=== PATIENT | male | born 1970 | race Caucasian/White ===

== ENCOUNTER 2022-12-14 19:40 | Outpatient (BNV) | payer OTHER, SELFPAY | END 2022-12-15 09:42 | PROVIDERS: Admitting Provider Psychiatry & Neurology Psychiatry; Visit Provider Internal Medicine Cardiovascular Disease | DX: R00.1 Bradycardia, unspecified (principal) | CPT/HCPCS: 93010 ==

== ENCOUNTER 2022-12-14 19:40 | Inpatient (IN) | payer OTHER, SELFPAY ==
--- NOTE | ~2022-12-14 | US_ITS ---
EXAMINATION: US NONINVASIVE ASSESSMENT OF THE BILATERAL LOWER EXTREMITY WITH ARTERIAL DUPLEX CLINICAL INFORMATION: Gangrenous toes, cocaine abuse COMPARISON: None available. TECHNIQUE: Duplex Doppler techniques with waveform analysis and measurement of velocities in the common femoral, profunda femoris, superficial femoral, popliteal and tibial arteries were performed. The study was performed only at rest. FINDINGS: NONINVASIVE ASSESSMENT OF THE ARTERIES OF BILATERAL LOWER EXTREMITIES: RIGHT LOWER EXTREMITY DUPLEX ULTRASOUND: Common femoral artery: 145 cm/s. Diastolic flow reversal: Present Profunda femoris artery: 100 cm/s. Diastolic flow reversal: Present Superficial femoral artery (proximal): 149 cm/s. Diastolic flow reversal: Present Superficial femoral artery (mid): 121 cm/s. Diastolic flow reversal: Present Superficial femoral artery (distal): 91.3 cm/s. Diastolic flow reversal: Present Popliteal artery: 104 cm/s Diastolic flow reversal: Present Posterior tibial artery: 126 cm/s Diastolic flow reversal: Present LEFT LOWER EXTREMITY DUPLEX ULTRASOUND: Common femoral artery: 138 cm/s. Diastolic flow reversal: Present Profunda femoris artery: 88.8 cm/s. Diastolic flow reversal: Present Superficial femoral artery (proximal): 117 cm/s. Diastolic flow reversal: Present Superficial femoral artery (mid): 98.8 cm/s. Diastolic flow reversal: Present Superficial femoral artery (distal): 96.7 cm/s. Diastolic flow reversal: Present Popliteal artery: 109 cm/s Diastolic flow reversal: Present Posterior tibial artery: 105 cm/s Diastolic flow reversal: Present US/US arterial duplex LE BI IMPRESSION: Patent visualized bilateral lower extremity arterial vasculature with normal multiphasic flow throughout.
--- NOTE | ~2022-12-14 | XR_ITS ---
EXAMINATION: XR FOOT, RIGHT CLINICAL INFORMATION: Gangrene. COMPARISON: None available. TECHNIQUE: AP, lateral, and oblique views of the right foot. FINDINGS: Cortical irregularity at the tuft of the fifth distal phalanx. Surrounding soft tissue thickening. No displaced fractures or subluxation. Mild joint space narrowing and subcortical sclerosis of the first metatarsophalangeal joint. XR/XR foot RT 2V IMPRESSION: Cortical irregularity at the tuft of the fifth distal phalanx with surrounding soft tissue thickening. This could be associated with osteomyelitis. Correlation with an MRI could be obtained as clinically indicated.
--- NOTE | ~2022-12-14 | XR_ITS ---
EXAMINATION: XR FOOT, LEFT CLINICAL INFORMATION: Gangrene. Toe pain. COMPARISON: None available. TECHNIQUE: AP, lateral, and oblique views of the left foot. FINDINGS: The bones and soft tissues are normal. No fracture. Alignment is anatomic. Joint spaces are maintained. XR/XR foot LT 2V IMPRESSION: Normal left foot.
[2022-12-14 20:00] VITALS: BP 142/70; PULSE 53; RESP 18; TEMP 36.5; O2SAT 98
[2022-12-14] MEDS: traZODone HCL 50 MG TABLET PO (21:32)
[2022-12-14] MEDS: hydrOXYzine HCL 25 MG TABLET PO (21:32)
[2022-12-14 22:24] VITALS: BMI 32.5
--- NOTE | 2022-12-14 22:28 | PC.ADMIT ---
Anthony arrived to the unit at 194, signed CV, [place] [facility] [place] approach appeared sad, he reported endorsing depression and anxiety, denied any AVH. When asked if he had any thoughts of wanting to hurt self stated No, but I don't want to be alive, when asked if he would seek out staff if urge to hurt self occurred stated Yes. Anthony was admitted after presenting to [facility] secondary to an attempted Fentanyl overdose. He reported that he was clean and was waiting on a program and then relapsed, I feel hopeless. Responded well to staff support.
[2022-12-14] MEDS: Prazosin HCL 1 MG CAPSULE PO (23:01)
[2022-12-14] MEDS: Mirtazapine 30 MG TABLET PO (23:01)
[2022-12-14] MEDS: Melatonin 3 MG TABLET 6 MG PO (23:02)
[2022-12-14] MEDS: Buprenorphine/Naloxone 12/3 mg FILM 1 FILM SUBLINGUAL (23:02)
[2022-12-14] MEDS: Gabapentin 400 MG CAPSULE PO (23:02)
--- NOTE | 2022-12-15 | ECG_ITS ---
Test Reason : recent OD Blood Pressure : / mmHG Vent. Rate : 055 BPM Atrial Rate : 055 BPM P-R Int : 178 ms QRS Dur : 080 ms QT Int : 436 ms P-R-T Axes : 063 067 056 degrees QTc Int : 417 ms Sinus bradycardia Otherwise normal ECG When compared with ECG of 11-OCT-2019 15:56, Nonspecific T wave abnormality now evident in Anterior leads Referred By: Yuniel Schultz Electronically Signed By:Dusty Torres
[2022-12-15] MEDS: Gabapentin 400 MG CAPSULE PO ×3 (09:03→21:02)
[2022-12-15] MEDS: valACYclovir HCL 1,000 MG TABLET 1000 MG PO (09:03)
[2022-12-15] MEDS: Buprenorphine/Naloxone 12/3 mg FILM 1 FILM SUBLINGUAL ×2 (09:03→19:49)
[2022-12-15 09:11] VITALS: BP 138/81; PULSE 53; RESP 14; TEMP 36.8; O2SAT 97
[2022-12-15 09:49] LABS: Alanine Aminotransferase 38 U/L (0-40); Albumin Level 3.3 g/dL (3.5-5.0); Alkaline Phosphatase 96 U/L (39-117); Anion Gap 13 (12-20); Aspartate Amino Transferase 38 U/L (5-37); Bilirubin Total 0.2 mg/dL (0.0-1.0); Blood Urea Nitrogen 10 mg/dL (9-16); Calcium 9.2 mg/dL (8.4-10.2); Carbon Dioxide 26 mmol/L (22-29); Chloride 105 mmol/L (96-108); Cholesterol 167 mg/dL; Creatinine Clr Calc Pharmacy 109.4; Estimated Glomerular Filt Rate > 60; Glucose Fasting 95 mg/dL (60-99); HDL Cholesterol 39 mg/dL; LDL Cholesterol Calculated 100 mg/dl; Potassium 3.6 mmol/L (3.3-5.1); Sodium 140 mmol/L (135-145); Total Protein 6.8 g/dL (6.5-8.0); Triglycerides 143 mg/dL
[2022-12-15 10:07] LABS: TSH reflex Free T4 1.72 uIU/mL (0.32-4.0)
[2022-12-15 10:11] LABS: Vitamin B12 357 pg/mL (200-900)
--- NOTE | 2022-12-15 12:27 | P.CONHOSP_ITS ---
History of Present Illness Data of Consult Service Date: 12/15/22 Requesting physician: Yuniel Schultz Primary Care Provider: Unknown Physician HPI Reason for consult: medical H&P 52-year-old male with history of alcohol abuse, cocaine abuse, opioid dependence on Suboxone, history of hepatitis-C treated with Harvoni, herpes simplex 2 virus, depression, and PTSD admitted to Psychiatry consult placed hospitalist service for medical H and P. He reports he is a 1 pack per day smoker and uses IV heroin and cocaine regularly. Denies any alcohol use currently. While in the ED at [facility], EKG showed sinus bradycardia rate 47 with prolonged QTC of 460. No ST/T-wave abnormality. At that time, potassium was 2.9 and was repleted. Today potassium 3.6. There is a normocytic anemia with H/H 11.8/34.7%. TSH was slightly low at 0.31 but free T4 was normal at 1.00. On repeat today, TSH 1.72. He is reporting pain in the bilateral feet, primarily the great toes ongoing for about 1 week. There is a black discoloration that is present. He is homeless and has been outside on the streets during recent significant rain fall. Review of Systems Review of Systems: General: No fevers, malaise, unintentional weight loss HEENT: No blurred vision, diplopia. No sore throat, nasal congestion, rh inorrhea, sinus pain, ear pain Cardiovascular: No chest pain, palpitations, or leg edema Respiratory: No shortness of breath, wheezing, cough GI: No abdominal pain, nausea, vomiting, diarrhea, constipation, melena, hematochezia : No dysuria, hematuria, increased urinary frequency, decreased urinary output MSK: No myalgia, back pain. +bilateral foot pain Neuro: No headaches, weakness, paresthesias Skin: No rashes or lesions PMFSH Medical History Depression History of hepatitis C Opioid dependence Polysubstance abuse PTSD (post-traumatic stress disorder) Social History Household Members: None Household Members Other:: Homeless Housing: Homeless Do you presently have visiting nurse or other home services: No Patient Tobacco Use Status: Current everyday Tobacco user Tobacco use type: Cigarette Cigarette Packs Per Day: 1 Cigarettes Per Day: 20.0 Smoked in Last 30 Days: No Patient Interested in Nicotine Replacement: Yes Patient Given Instructions on How to Stop Smoking: Yes Date Education Initiated: 12/14/22 Use of substances other than those prescribed or required for medical reasons: Yes Substance Use Type: Crack/Cocaine Substance Use Type Other:: Fentanyl Substance Use Frequency: Daily Last Used Substance: Just Prior to Admission Currently Displaying Signs/Symptoms of Drug Intoxication Withdrawal: No Any prior treatment program specific to substance use: Yes (Suboxone) Have you been hit, kicked, punched, or otherwise hurt by someone within the past year? If so, by whom?: No Do you feel safe in your current relationship?: No Current Relationship Is there a partner from a previous relationship who is making you feel unsafe now?: No Are you made to feel afraid or neglected: No Spiritual Healthcare Practices: Christianity Cheondoism Healthcare Practices: Christianity Advance Directives: No Advance Directives Information Provided: Yes Do you have thoughts of harming others: None Do you have a plan to hurt others: No Plan Recently lost weight without trying: Unsure How much weight loss: Unsure Eating poorly because of decreased appetite: No Nutrition screen score: 4 Nutrition Risks: No Nutritional Risk Meds Allergies Allergy/AdvReac Type Severity Reaction Status Date / Time No Known Allergies Allergy Unverified 02/13/20 18:29 Active Medications: Current Medications Acetaminophen (Acetaminophen 325 Mg Tablet) 650 mg PO Q6H PRN PRN Reason: Headache/Pain Mild Scale (1-3) Al Hydroxide/Mg Hydroxide (Magnesium Hydrox/Alum Hydrox 30 Ml Oral.Susp) 30 ml PO Q6H PRN PRN Reason: Heartburn/Nausea Buprenorphine/Naloxone (Buprenorphine/Naloxone 12/3 Mg Film) 1 film SUBLINGUAL BID BORIS Last Admin: 12/15/22 09:03 Dose: 1 film Clonidine HCl (Clonidine Hcl 0.1 Mg Tablet) 0.1 mg PO TID PRN; Protocol PRN Reason: anxiety/restlessness Gabapentin (Gabapentin 400 Mg Capsule) 400 mg PO TID BORIS Last Admin: 12/15/22 09:03 Dose: 400 mg Hydroxyzine HCl (Hydroxyzine Hcl 25 Mg Tablet) 25 mg PO Q6H PRN PRN Reason: Anxiety Last Admin: 12/14/22 21:32 Dose: 25 mg Magnesium Hydroxide (Milk Of Magnesia 30 Ml Oral.Susp) 30 ml PO DAILY PRN PRN Reason: Constipation Melatonin (Melatonin 3 Mg Tablet) 6 mg PO BEDTIME [facility] Last Admin: 12/14/22 23:02 Dose: 6 mg Methocarbamol (Methocarbamol 500 Mg Tablet) 500 mg PO TID PRN PRN Reason: Muscle Spasm Mirtazapine (Mirtazapine 30 Mg Tablet) 30 mg PO BEDTIME BORIS Last Admin: 12/14/22 23:01 Dose: 30 mg Nicotine Polacrilex (Nicotine Polacrilex 2 Mg Gum) 2 mg BUCCAL Q2H PRN PRN Reason: Nicotine Cravings Nicotine Polacrilex (Nicotine Polacrilex Lozenge 4 Mg Lozenge) 4 mg BUCCAL Q2H PRN PRN Reason: Nicotine Cravings Prazosin HCl (Prazosin Hcl 1 Mg Capsule) 1 mg PO BEDTIME BORIS; Protocol Last Admin: 12/14/22 23:01 Dose: 1 mg Trazodone HCl (Trazodone Hcl 50 Mg Tablet) 50 mg PO BEDTIME MRX1 PRN PRN Reason: Insomnia Last Admin: 12/14/22 21:32 Dose: 50 mg Valacyclovir HCl (Valacyclovir Hcl 1,000 Mg Tablet) 1,000 mg PO DAILY [facility] Last Admin: 12/15/22 09:03 Dose: 1,000 mg Physical Exam Vital Signs and Narrative: Vital Signs: Last Vital Signs Temp 98.3 F 12/15/22 09:11 Pulse 53 12/15/22 09:11 Resp 14 12/15/22 09:11 BP 138/81 12/15/22 09:11 Pulse Ox 97 12/15/22 09:11 O2 Del Method Room Air 12/15/22 09:11 BMI result Body Mass Index 32.5 Constitutional - Awake and Alert, No apparent distress Eyes - PERRLA, EOMI Cardiovascular - S1S2, RRR, No edema Respiratory - Normal lung expansion, Normal respiratory effort, No respiratory distress, CTA bilaterally Gastrointestinal - NT / ND; +BS; No rebound or guarding Extremities - no calf tenderness bilaterally, no swelling Skin - Warm/Dry. Black discoloration of the distal aspect of the great toes bilaterally, no foul odor Neurological - Alert & oriented x3, CN II-XII in tact, 5/5 strength BUE and BLE Psychological - Appropriate affect Results Labs 12/15/22 08:23 Labs: Laboratory Results - last 24 hr 12/15/22 12/15/22 08:23 08:23 Anion Gap 13 Estim Creat Clear Calc 109.4 Estimated GFR > 60 Fasting Glucose 95 Calcium 9.2 Total Bilirubin 0.2 AST 38 H ALT 38 Alkaline Phosphatase 96 Total Protein 6.8 Albumin 3.3 L Triglycerides 143 Cholesterol 167 LDL Cholesterol, Calc 100 HDL Cholesterol 39 Vitamin B12 357 Folate 10.0 TSH 1.72 Assessment and Plan (1) Routine medical exam: Status: Acute Plan 52-year-old male with history of alcohol abuse, cocaine abuse, opioid dependence on Suboxone, history of hepatitis-C treated with Harvoni, herpes simplex 2 virus, depression, and PTSD admitted to Psychiatry consult placed hospitalist service for medical H and P. #Mood disorder -plan per psychiatry #Gangrene bilateral great toes -XRay bilateral feet ordered -general surgery consult -pain management #Polysubstance abuse -continue suboxone -plan per Psychiatry Thank you for allowing me to participate in this consult. Signing off at this time. Please do not hesitate to call for further questions. Time Spent With Patient Time: Total time managing care of this patient today ____ minutes.
--- NOTE | 2022-12-15 14:42 | HO.PSYADMNOT ---
HPI Date of Service: 12/15/22 Chief Complaint: F32, F11.20, F14.10, F10.2 Sources of Information: patient interviewed, chart reviewed and crisis/core team assessment reviewed HPI Subjective Notes: Reyes Warning and Conditional Voluntary Healthcare Proxy: No Guardianship: No Medical Problems Affecting Mental Status: No Narrative: 52 yo male, history of depression, PTSD, hepatitis, genital herpes, transfer from [facility] where he was admitted on 12/11/22 s/p overdose of fentanyl. As a result he experienced BEBE, rhabdomyolysis, hyponatremia, hypokalemia, metabolic acidosis with CK 3892 decreasing, BUN 50 decreasing, Cr 3.3 decreasing, mild anemia. Toxicology positive for cannabis, cocaine, opiates. Pt reports relapse, homelessness, financial stress were precipitants to OD which was a suicide attempt. He is regretful his attempt was not a success he reports today. He reports OD of fentanyl last week as well. He reports he is willing to consider CSS when stable along with psychotherapy and psychophamacology. He is continuing with Suboxone. Past Psychiatric History: IP: Several OP: Denies current team Trials: Acknowledges, unable to give specific names. Reports no real success of any specific trial. Medical Evaluation Reviewed: Yes [facility] Medical History (Updated 12/15/22 @ 16:20 by Alayna Parry APRN) Cannabis use disorder Cocaine use disorder Depression History of hepatitis C Opioid dependence Opioid use disorder Polysubstance abuse PTSD (post-traumatic stress disorder) Recurrent major depression-severe Narrative: Genital Herpes Recent BEBE, Rhabdomyolysis, hyponatremia, hypokalemia, metabolic acidosis Family History: Denies Social History: Pt reports he is homeless Substance History: Cannabis, cocaine=IV, opiates-IV, fentanyl Tobacco 1.25 PPD History of alcohol use, currently in remission Trauma History: affirms Diagnostics Vital Signs (24Hr): Vital Signs - 24 hr 12/14/22 20:00 12/15/22 09:11 Temperature 97.7 F 98.3 F Pulse Rate 53 53 Respiratory Rate 18 14 Blood Pressure 142/70 H 138/81 Pulse Oximetry 98 97 Oxygen Delivery Method Room Air Room Air BMI result Body Mass Index 32.5 Labs 12/15/22 08:23 Labs: Laboratory Results - last 48 hr 12/15/22 12/15/22 08:23 08:23 Sodium 140 Potassium 3.6 Chloride 105 Carbon Dioxide 26 Anion Gap 13 BUN 10 Creatinine 0.94 Estim Creat Clear Calc 109.4 Estimated GFR > 60 Fasting Glucose 95 Calcium 9.2 Total Bilirubin 0.2 AST 38 H ALT 38 Alkaline Phosphatase 96 Total Protein 6.8 Albumin 3.3 L Triglycerides 143 Cholesterol 167 LDL Cholesterol, Calc 100 HDL Cholesterol 39 Vitamin B12 357 Folate 10.0 TSH 1.72 Meds/Allergies Allergies Allergies Allergy/AdvReac Type Severity Reaction Status Date / Time No Known Allergies Allergy Unverified 02/13/20 18:29 Mental Status Exam Mental Status Exam Patient Appearance: Fatigued Patient Orientation: Person, Place, Time and Situation Level of Consciousness: Drowsy and Sedated Patient Behavior: Guarded, Passive, Asleep, Sedated, Avoidant, Fatigued, Isolative and Poor Eye Contact Mood Description: Withdrawn, Depressed and Sad Affect Description: Withdrawn and Flat Patient Cognition Impaired: No Ability to Follow Directions: Fair Speech Pattern: Spontaneous Speech, Soft-Spoken, Delayed and Long Pauses Memory Description: Remote Impaired and Episodic Impaired Hallucinations: None Delusions: Not Present Perceptual Disturbances: Depersonalization and Derealization Thought Process: Rumination and Evasive Thought Content: positive for Circumstantial, positive for Slowed Thinking, positive for Evasive and positive for Suicidal Ideation Depressive Symptoms: Sleeping More Than Usual, Feelings of Worthlessness, Hopelessness, Isolating-Friends/Family, Unhappiness, Increased Fatigue, Thoughts of /Suicide and Loss of Energy Judgement: Fair Assessment & Plan Assessment & Plan (1) Recurrent major depression-severe: Status: Acute Code(s): F33.2 - Major depressive disorder, recurrent severe without psychotic features (2) Opioid use disorder: Status: Acute Code(s): F11.90 - Opioid use, unspecified, uncomplicated (3) Cocaine use disorder: Status: Acute Code(s): F14.10 - Cocaine abuse, uncomplicated (4) Cannabis use disorder: Status: Acute Code(s): F12.90 - Cannabis use, unspecified, uncomplicated Plan 52 yo male, history of depression, PTSD, Opiate, Cocaine, Cannabis use s/p OD of Fentanyl, admit to [facility] 12/11 with BEBE,rhabdomyolysis, hyponatremia, hypokalemia metabolic acidosis. [place] [facility] [place] Reports regret that his attempt, acknowledges it as a suicide attempt was not a success. Pt does have interest in CSS admission assistance. Reports regular regime has been useful and he would like to maintain this. Validated with [facility] [place]. Reports pain in both of his great toes with bilateral feet pain and a black/blue discoloration. Pt possibly has gangrenous toes-his hospitalist has asked general surgery to evaluate. Pt today is a limited historian with sedation and withdrawl during the interview. We will need some time to get to know him. Plan: Continue OP regime Iron Profile Addiction Consult Patient educated on: therapeutic strategies Informed Consent: further education needed Reason for continued inpatient stay Substantial Risk for: harm to self, inability to function and rapid decompensation Statement Statement: I have reviewed the history and physical and performed a pertinent examination on my patient. No changes have occurred unless specified. If the History and Physical was not performed prior to admission, the Hospitalist's service will be consulted for completing the admission physical. Time Spent With Patient Time: Total time managing care of this patient today ____ minutes.
[2022-12-15 21:00] VITALS: BP 132/76; PULSE 85; O2SAT 95
[2022-12-15] MEDS: Prazosin HCL 1 MG CAPSULE PO (21:02)
[2022-12-15] MEDS: Mirtazapine 30 MG TABLET PO (21:02)
[2022-12-15] MEDS: Melatonin 3 MG TABLET 6 MG PO (21:02)
[2022-12-16] MEDS: traZODone HCL 50 MG TABLET PO ×2 (00:34→21:26)
[2022-12-16 08:15] VITALS: BP 122/63; PULSE 60; RESP 16; TEMP 36.4; O2SAT 94
[2022-12-16] MEDS: Gabapentin 400 MG CAPSULE PO ×2 (08:19→14:33)
[2022-12-16] MEDS: Nicotine 21 MG PATCH.TD24 TRANSDERMA ×2 (08:19→16:57)
[2022-12-16] MEDS: valACYclovir HCL 1,000 MG TABLET 1000 MG PO (08:19)
[2022-12-16] MEDS: Buprenorphine/Naloxone 12/3 mg FILM 1 FILM SUBLINGUAL ×2 (08:19→14:33)
[2022-12-16 09:28] LABS: Iron 46 mcg/dL (45-160); Percent Iron Saturation 17 % (15-50); Total Iron Binding Capacity 272 mcg/dL (228-428); Unsaturated Iron Binding 226 ug/dL
--- NOTE | 2022-12-16 11:33 | PM.CNGS ---
History of Present Illness Consult details Consult date: 12/16/22 Narrative: 52M referred for discoloration of both big toes. He was admitted yesterday with psych unit for suicidal ideations. He has a history of major depression with polysubstance abuse. He is a regular user of heroin and cocaine. He was recently admitted to [facility] as well because of drug overdose. He was noted to have discoloration of both big toes on admission. He does state that he has had this for over a week. He says that he is homeless and has to walk all the time with his feet rubbing on his sneakers and he says that this is how he says got this discoloration. He denies any bleeding discharge or swelling. Review of Systems Constitutional: Constitutional: Denies chills and Denies fever(s) Cardiovascular: Cardiovascular: Denies chest pain, Denies dyspnea and Denies dyspnea on exertion Respiratory: Respiratory: Denies cough, Denies dyspnea and Denies dyspnea on exertion Gastrointestinal: Gastrointestinal: Denies hematochezia and Denies change in bowel habits Genitourinary: Genitourinary: Denies hematuria and Denies difficulty urinating Musculoskeletal: Musculoskeletal: Denies back pain and Denies limited range of motion Neurologic: Denies focal weakness and Denies convulsions Psychiatric: Psychiatric: Reports depression, Reports mood swings and Reports suicidal ideation PMFSH Past Medical History Medical History (Updated 12/16/22 @ 11:39 by Gigi Swain MD) Cannabis use disorder Cocaine use disorder Depression Discoloration of skin of toe History of hepatitis C Opioid dependence Opioid use disorder Polysubstance abuse PTSD (post-traumatic stress disorder) Recurrent major depression-severe Social History Social History Household Members: None Household Members Other:: Homeless Housing: Homeless Do you presently have visiting nurse or other home services: No Patient Tobacco Use Status: Current everyday Tobacco user Tobacco use type: Cigarette Cigarette Packs Per Day: 1 Cigarettes Per Day: 20.0 Smoked in Last 30 Days: No Patient Interested in Nicotine Replacement: Yes Patient Given Instructions on How to Stop Smoking: Yes Date Education Initiated: 12/14/22 Use of substances other than those prescribed or required for medical reasons: Yes Substance Use Type: Crack/Cocaine Substance Use Type Other:: Fentanyl Substance Use Frequency: Daily Last Used Substance: Just Prior to Admission Currently Displaying Signs/Symptoms of Drug Intoxication Withdrawal: No Any prior treatment program specific to substance use: Yes (Suboxone) Have you been hit, kicked, punched, or otherwise hurt by someone within the past year? If so, by whom?: No Do you feel safe in your current relationship?: No Current Relationship Is there a partner from a previous relationship who is making you feel unsafe now?: No Are you made to feel afraid or neglected: No Spiritual Healthcare Practices: [employer] Healthcare Practices: [employer] Advance Directives: No Advance Directives Information Provided: Yes Do you have thoughts of harming others: None Do you have a plan to hurt others: No Plan Recently lost weight without trying: Unsure How much weight loss: Unsure Eating poorly because of decreased appetite: No Nutrition screen score: 4 Nutrition Risks: No Nutritional Risk service: No Sexual orientation: Straight/Heterosexual Meds Allergies Allergy/AdvReac Type Severity Reaction Status Date / Time No Known Allergies Allergy Unverified 02/13/20 18:29 Active Medications: Current Medications Acetaminophen (Acetaminophen 325 Mg Tablet) 650 mg PO Q6H PRN PRN Reason: Headache/Pain Mild Scale (1-3) Al Hydroxide/Mg Hydroxide (Magnesium Hydrox/Alum Hydrox 30 Ml Oral.Susp) 30 ml PO Q6H PRN PRN Reason: Heartburn/Nausea Buprenorphine/Naloxone (Buprenorphine/Naloxone 12/3 Mg Film) 1 film SUBLINGUAL BID@0800,1500 COUNT INCLUDES THE [facility] Last Admin: 12/16/22 08:19 Dose: 1 film Clonidine HCl (Clonidine Hcl 0.1 Mg Tablet) 0.1 mg PO TID PRN; Protocol PRN Reason: anxiety/restlessness Gabapentin (Gabapentin 400 Mg Capsule) 400 mg PO TID COUNT INCLUDES THE [facility] Last Admin: 12/16/22 08:19 Dose: 400 mg Hydroxyzine HCl (Hydroxyzine Hcl 25 Mg Tablet) 25 mg PO Q6H PRN PRN Reason: Anxiety Last Admin: 12/14/22 21:32 Dose: 25 mg Magnesium Hydroxide (Milk Of Magnesia 30 Ml Oral.Susp) 30 ml PO DAILY PRN PRN Reason: Constipation Melatonin (Melatonin 3 Mg Tablet) 6 mg PO BEDTIME COUNT INCLUDES [facility] Last Admin: 12/15/22 21:02 Dose: 6 mg Methocarbamol (Methocarbamol 500 Mg Tablet) 500 mg PO TID PRN PRN Reason: Muscle Spasm Mirtazapine (Mirtazapine 30 Mg Tablet) 30 mg PO BEDTIME [facility] Last Admin: 12/15/22 21:02 Dose: 30 mg Nicotine (Nicotine 21 Mg Patch.Td24) 21 mg TRANSDERMA DAILY COUNT INCLUDES [facility] Last Admin: 12/16/22 08:19 Dose: 21 mg Nicotine Polacrilex (Nicotine Polacrilex Lozenge 4 Mg Lozenge) 4 mg BUCCAL Q2H PRN PRN Reason: Nicotine Cravings Prazosin HCl (Prazosin Hcl 1 Mg Capsule) 1 mg PO BEDTIME [facility]; Protocol Last Admin: 12/15/22 21:02 Dose: 1 mg Trazodone HCl (Trazodone Hcl 50 Mg Tablet) 50 mg PO BEDTIME MRX1 PRN PRN Reason: Insomnia Last Admin: 12/16/22 00:34 Dose: 50 mg Valacyclovir HCl (Valacyclovir Hcl 1,000 Mg Tablet) 1,000 mg PO DAILY COUNT INCLUDES THE [facility] Last Admin: 12/16/22 08:19 Dose: 1,000 mg Physical Exam Vital Signs: Vital Signs: Last Vital Signs Temp 97.5 F 12/16/22 08:15 Pulse 60 12/16/22 08:15 Resp 16 12/16/22 08:15 BP 122/63 12/16/22 08:15 Pulse Ox 94 12/16/22 08:15 O2 Del Method Room Air 12/16/22 08:15 BMI result Body Mass Index 32.5 Const: General: comfortable and no acute distress Orientation/consciousness: patient oriented x3 Neck: Neck: Yes no lymphadenopathy Resp: Auscultation: clear to auscultation bilaterally Cardio: Rhythm: regular rhythm GI: Palpation (GI): Soft to palpation, nontender and no guarding Neuro: General: patient oriented x3 Extrem: Other: Right big toe with discoloration on medial aspect, well-defined, superficial, about 2 cm widest diameter, dry, no pus, no cellulitis, no discharge; left big toe with similar but light coloration, no pus cellulitis or discharge, also about 2 cm in diameter Results Labs 12/15/22 08:23 Labs: Abnormal lab results 12/16/22 Range/Units 08:13 Phosphorus 2.0 L (2.7-4.5) mg/dL All other labs normal. Assessment and Plan (1) Discoloration of skin of toe: Status: Acute These appear to be superficial dry necrosis of the skin of the big toes on both the left and right side. These are likely secondary to pressure and rubbing ambulation with his shoes. These do not appear to be infected. I would allow this to slough off. I do not feel he requires any debridement or I&D at this time. However, I will check him in again while he is in the hospital and re-examine the area. I do not feel that he will require antibiotics at this time. Time Spent With Patient Time: Total time managing care of this patient today ____ minutes. Procedures Date of Service Date of Service: 12/21/22
[2022-12-16 13:43] LABS: C Reactive Protein 0.64 mg/dL (< or = 0.50)
[2022-12-16 14:33] LABS: Erythrocyte Sedimentation Rate 20 MM/HR (0-15)
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
[2022-12-16] MEDS: hydrOXYzine HCL 25 MG TABLET PO (19:02)
[2022-12-16 21:23] VITALS: BP 138/69; PULSE 75; RESP 18; TEMP 36.1; O2SAT 97
[2022-12-16] MEDS: Prazosin HCL 1 MG CAPSULE PO (21:25)
[2022-12-16] MEDS: Melatonin 3 MG TABLET 6 MG PO (21:26)
[2022-12-16] MEDS: Gabapentin 300 MG CAPSULE 600 MG PO (21:26)
[2022-12-16] MEDS: Mirtazapine 30 MG TABLET PO (21:26)
[2022-12-17 08:00] VITALS: BP 133/83; PULSE 81; RESP 18; TEMP 36.2; O2SAT 95
[2022-12-17] MEDS: Buprenorphine/Naloxone 12/3 mg FILM 1 FILM SUBLINGUAL ×2 (08:37→14:33)
[2022-12-17] MEDS: Nicotine 21 MG PATCH.TD24 TRANSDERMA (08:54)
[2022-12-17] MEDS: Gabapentin 300 MG CAPSULE 600 MG PO ×3 (08:55→21:21)
[2022-12-17] MEDS: valACYclovir HCL 1,000 MG TABLET 1000 MG PO (08:55)
[2022-12-17] MEDS: Mineral Oil/Petrolatum,White 106 GM Tube 1 APPL TOPICAL ×2 (08:56→22:15)
[2022-12-17 08:58] LABS: Phosphorus 2.7 mg/dL (2.7-4.5)
[2022-12-17] MEDS: Acetaminophen 325 MG TABLET 650 MG PO ×2 (13:16→21:20)
[2022-12-17] MEDS: hydrOXYzine HCL 25 MG TABLET PO ×2 (13:16→21:20)
--- NOTE | 2022-12-17 14:48 | P.PNPSI_ITS ---
Subjective Subjective Date of Service: 12/17/22 Reason For Visit: F32, F11.20, F14.10, F10.2 Interim History: Patient seen. DW team. Depressed. Difficulty with sleep. Feels med regimen is n ot helping sleep. Working with team on CSS placement.Surgery consultation didn't recommend surgery or antibiotics. Feeling stress about not having clothing to go to a program. Denies SI. Review of Systems Review of Systems General: No fevers, malaise, unintentional weight loss HEENT: No blurred vision, diplopia. No sore throat, nasal congestion, rhinorrhea, sinus pain, ear pain Cardiovascular: No chest pain, palpitations, or leg edema Respiratory: No shortness of breath, wheezing, cough GI: No abdominal pain, nausea, vomiting, diarrhea, constipation, melena, hematochezia : No dysuria, hematuria, increased urinary frequency, decreased urinary output MSK: No myalgia, back pain. +bilateral foot pain Neuro: No headaches, weakness, paresthesias Skin: No rashes or lesions Constitutional: Reports body ache(s), Denies chills, Reports fatigue, Denies fever(s), Reports malaise, Reports poor appetite and Reports weakness Eyes: Reports no additional eye complaints Reports system reviewed and no additional complaints, except as documented Cardiovascular: Reports no additional cardiovascular complaints, Denies chest pain, Denies dyspnea, Denies dyspnea on exertion and Reports other (reports feet pain-circulation poor, ?gangrene, ?cocaine toes) Respiratory: Reports no additional respiratory complaints, Denies cough, Denies dyspnea and Denies dyspnea on exertion Gastrointestinal: Reports no additional gastrointestinal complaints, Denies hematochezia and Denies change in bowel habits Genitourinary: Reports no additional male genitourinary complaints, Denies hematuria and Denies difficulty urinating Musculoskeletal: Reports no additional musculoskeletal complaints, Denies back pain and Denies limited range of motion Skin/Breast: Reports system reviewed and no additional complaints, except as docu Reports system reviewed and no additional complaints, except as documented, Reports behavioral changes, Denies focal weakness, Denies convulsions and Reports weakness Psychiatric: Reports anxiety, Reports behavioral changes, Reports change in appetite, Reports depression, Reports difficulty concentrating, Reports hopelessness, Reports anhedonia, Reports mood swings and Reports suicidal ideation Endocrine: Reports fatigue Hematologic/Lymphatic: Reports no additional hematologic/lymphatic complaints Allergic/Immunologic: Reports no additional allergic/immunologic complaints Mental Status Exam Mental Status Exam Patient Appearance: Fatigued Patient Orientation: Person, Place, Time and Situation Level of Consciousness: Drowsy and Sedated Patient Behavior: Guarded, Passive, Asleep, Sedated, Avoidant, Fatigued, Isolative and Poor Eye Contact Mood Description: Withdrawn, Depressed and Sad Affect Description: Withdrawn and Flat Patient Cognition Impaired: No Ability to Follow Directions: Fair Speech Pattern: Spontaneous Speech, Soft-Spoken, Delayed and Long Pauses Memory Description: Remote Impaired and Episodic Impaired Diagnostics Vital Signs (24Hr): Vital Signs - 24 hr 12/16/22 21:23 12/17/22 06:00 Temperature 97 F 97.1 F Pulse Rate 75 81 Respiratory Rate 18 18 Blood Pressure 138/69 133/83 Pulse Oximetry 97 95 Oxygen Delivery Method Room Air BMI result Body Mass Index 32.5 Labs 12/15/22 08:23 Labs: Laboratory Results - last 48 hr 12/16/22 12/16/22 12/16/22 08:13 13:08 13:08 ESR 20 H Phosphorus 2.0 L Iron 46 TIBC 272 % Saturation 17 Unsat Iron Binding 226 C-Reactive Protein 0.64 H 12/17/22 07:52 ESR Phosphorus 2.7 Iron TIBC % Saturation Unsat Iron Binding C-Reactive Protein Imaging Radiology Impressions: ITS Impressions Foot X-Ray 12/15/22 18:30 IMPRESSION: Normal left foot. Foot X-Ray 12/15/22 18:30 IMPRESSION: Cortical irregularity at the tuft of the fifth distal phalanx with surrounding soft tissue thickening. This could be associated with osteomyelitis. Correlation with an MRI could be obtained as clinically indicated. Duplex Scan Lower Extremity Artery 12/15/22 18:50 IMPRESSION: Patent visualized bilateral lower extremity arterial vasculature with normal multiphasic flow throughout. Medications Medications Current Medications Acetaminophen (Acetaminophen 325 Mg Tablet) 650 mg PO Q6H PRN PRN Reason: Headache/Pain Mild Scale (1-3) Last Admin: 12/17/22 13:16 Dose: 650 mg Al Hydroxide/Mg Hydroxide (Magnesium Hydrox/Alum Hydrox 30 Ml Oral.Susp) 30 ml PO Q6H PRN PRN Reason: Heartburn/Nausea Buprenorphine/Naloxone (Buprenorphine/Naloxone 12/3 Mg Film) 1 film SUBLINGUAL BID@0800,1500 [facility] Last Admin: 12/17/22 14:33 Dose: 1 film Clonidine HCl (Clonidine Hcl 0.1 Mg Tablet) 0.1 mg PO TID PRN; Protocol PRN Reason: anxiety/restlessness Gabapentin (Gabapentin 300 Mg Capsule) 600 mg PO TID [facility] Last Admin: 12/17/22 14:32 Dose: 600 mg Hydroxyzine HCl (Hydroxyzine Hcl 25 Mg Tablet) 25 mg PO Q6H PRN PRN Reason: Anxiety Last Admin: 12/17/22 13:16 Dose: 25 mg Magnesium Hydroxide (Milk Of Magnesia 30 Ml Oral.Susp) 30 ml PO DAILY PRN PRN Reason: Constipation Melatonin (Melatonin 3 Mg Tablet) 6 mg PO BEDTIME [facility] Last Admin: 12/16/22 21:26 Dose: 6 mg Methocarbamol (Methocarbamol 500 Mg Tablet) 500 mg PO TID PRN PRN Reason: Muscle Spasm Mirtazapine (Mirtazapine 30 Mg Tablet) 30 mg PO BEDTIME [facility] Last Admin: 12/16/22 21:26 Dose: 30 mg Multi-Ingred Cream/Lotion/Oil/Oint (Mineral Oil/Petrolatum,White 106 Gm Tube) 1 appl TOPICAL BID [facility]; Protocol Last Admin: 12/17/22 08:56 Dose: 1 appl Nicotine (Nicotine 21 Mg Patch.Td24) 21 mg TRANSDERMA DAILY [facility] Last Admin: 12/17/22 08:54 Dose: 21 mg Nicotine Polacrilex (Nicotine Polacrilex Lozenge 4 Mg Lozenge) 4 mg BUCCAL Q2H PRN PRN Reason: Nicotine Cravings Prazosin HCl (Prazosin Hcl 1 Mg Capsule) 2 mg PO BEDTIME [facility]; Protocol Trazodone HCl (Trazodone Hcl 50 Mg Tablet) 50 mg PO BEDTIME MRX1 PRN PRN Reason: Insomnia Last Admin: 12/16/22 21:26 Dose: 50 mg Valacyclovir HCl (Valacyclovir Hcl 1,000 Mg Tablet) 1,000 mg PO DAILY [facility] Last Admin: 12/17/22 08:55 Dose: 1,000 mg Allergies Allergies Allergy/AdvReac Type Severity Reaction Status Date / Time No Known Allergies Allergy Unverified 02/13/20 18:29 Assessment & Plan Assessment & Plan (1) PTSD (post-traumatic stress disorder): Status: Acute Code(s): F43.10 - Post-traumatic stress disorder, unspecified (2) Recurrent major depression-severe: Status: Acute Code(s): F33.2 - Major depressive disorder, recurrent severe without psychotic features (3) Opioid use disorder: Status: Acute Code(s): F11.90 - Opioid use, unspecified, uncomplicated (4) Cocaine use disorder: Status: Acute Code(s): F14.10 - Cocaine abuse, uncomplicated (5) Cannabis use disorder: Status: Acute Code(s): F12.90 - Cannabis use, unspecified, uncomplicated Plan 12/16/22 Continue current regime Eucerin cream for dry skin CSS planning for discharge 12/17: Increase Prazosin 2 mg HS. Consider further titration or Seroquel next. Reason for continued inpatient stay Substantial Risk for: harm to self, inability to function and rapid decompensation Time Spent With Patient Time: Total time managing care of this patient today ____ minutes.
[2022-12-17 16:06] VITALS: BP 146/70; PULSE 77; RESP 18; TEMP 36.2; O2SAT 94
[2022-12-17] MEDS: Mirtazapine 30 MG TABLET PO (21:21)
[2022-12-17] MEDS: Prazosin HCL 1 MG CAPSULE 2 MG PO (21:21)
[2022-12-17] MEDS: Melatonin 3 MG TABLET 6 MG PO (21:21)
[2022-12-17 21:25] VITALS: BP 165/93; PULSE 79; RESP 17; TEMP 36.4; O2SAT 97
[2022-12-18 06:00] VITALS: BP 138/70; PULSE 86; RESP 18; TEMP 36.2; O2SAT 97
[2022-12-18 08:21] LABS: Phosphorus 3.7 mg/dL (2.7-4.5)
[2022-12-18] MEDS: Buprenorphine/Naloxone 12/3 mg FILM 1 FILM SUBLINGUAL ×2 (08:22→14:38)
[2022-12-18] MEDS: Gabapentin 300 MG CAPSULE 600 MG PO ×3 (08:23→21:57)
[2022-12-18] MEDS: valACYclovir HCL 1,000 MG TABLET 1000 MG PO (08:23)
[2022-12-18] MEDS: Nicotine 21 MG PATCH.TD24 TRANSDERMA (08:25)
[2022-12-18] MEDS: Mineral Oil/Petrolatum,White 106 GM Tube 1 APPL TOPICAL (08:27)
--- NOTE | 2022-12-18 10:56 | P.PNPSI_ITS ---
Subjective Subjective Date of Service: 12/18/22 Reason For Visit: F32, F11.20, F14.10, F10.2 Interim History: Patient seen. DW team. Depressed. Complaining of mouth sores that have been wor sening over past week. 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 Denies SI on the unit but voices he would have SI with plans for OD f he is in the community. Sleep is difficult still. Review of Systems Review of Systems General: No fevers, malaise, unintentional weight loss HEENT: No blurred vision, diplopia. No sore throat, nasal congestion, rhinorrhea, sinus pain, ear pain Cardiovascular: No chest pain, palpitations, or leg edema Respiratory: No shortness of breath, wheezing, cough GI: No abdominal pain, nausea, vomiting, diarrhea, constipation, melena, hematochezia : No dysuria, hematuria, increased urinary frequency, decreased urinary output MSK: No myalgia, back pain. +bilateral foot pain Neuro: No headaches, weakness, paresthesias Skin: No rashes or lesions Constitutional: Reports body ache(s), Denies chills, Reports fatigue, Denies fever(s), Reports malaise, Reports poor appetite and Reports weakness Eyes: Reports no additional eye complaints Reports system reviewed and no additional complaints, except as documented Cardiovascular: Reports no additional cardiovascular complaints, Denies chest pain, Denies dyspnea, Denies dyspnea on exertion and Reports other (reports feet pain-circulation poor, ?gangrene, ?cocaine toes) Respiratory: Reports no additional respiratory complaints, Denies cough, Denies dyspnea and Denies dyspnea on exertion Gastrointestinal: Reports no additional gastrointestinal complaints, Denies hematochezia and Denies change in bowel habits Genitourinary: Reports no additional male genitourinary complaints, Denies hematuria and Denies difficulty urinating Musculoskeletal: Reports no additional musculoskeletal complaints, Denies back pain and Denies limited range of motion Skin/Breast: Reports system reviewed and no additional complaints, except as docu Reports system reviewed and no additional complaints, except as documented, Reports behavioral changes, Denies focal weakness, Denies convulsions and Reports weakness Psychiatric: Reports anxiety, Reports behavioral changes, Reports change in appetite, Reports depression, Reports difficulty concentrating, Reports hopelessness, Reports anhedonia, Reports mood swings and Reports suicidal ideation Endocrine: Reports fatigue Hematologic/Lymphatic: Reports no additional hematologic/lymphatic complaints Allergic/Immunologic: Reports no additional allergic/immunologic complaints Mental Status Exam Mental Status Exam Patient Appearance: Fatigued Patient Orientation: Person, Place, Time and Situation Level of Consciousness: Drowsy and Sedated Patient Behavior: Guarded, Passive, Asleep, Sedated, Avoidant, Fatigued, Isolative and Poor Eye Contact Mood Description: Withdrawn, Depressed and Sad Affect Description: Withdrawn and Flat Patient Cognition Impaired: No Ability to Follow Directions: Fair Speech Pattern: Spontaneous Speech, Soft-Spoken, Delayed and Long Pauses Memory Description: Remote Impaired and Episodic Impaired Diagnostics Vital Signs (24Hr): Vital Signs - 24 hr 12/17/22 16:06 12/17/22 21:25 12/18/22 06:00 Temperature 97.1 F 97.6 F 97.2 F Pulse Rate 77 79 86 Respiratory Rate 18 17 18 Blood Pressure 146/70 H 165/93 H 138/70 Pulse Oximetry 94 97 97 Oxygen Delivery Method Room Air Room Air BMI result Body Mass Index 32.5 Labs 12/15/22 08:23 Labs: Laboratory Results - last 48 hr 12/16/22 12/16/22 12/17/22 13:08 13:08 07:52 ESR 20 H Phosphorus 2.7 C-Reactive Protein 0.64 H 12/18/22 07:21 ESR Phosphorus 3.7 C-Reactive Protein Imaging Radiology Impressions: ITS Impressions Foot X-Ray 12/15/22 18:30 IMPRESSION: Normal left foot. Foot X-Ray 12/15/22 18:30 IMPRESSION: Cortical irregularity at the tuft of the fifth distal phalanx with surrounding soft tissue thickening. This could be associated with osteomyelitis. Correlation with an MRI could be obtained as clinically indicated. Duplex Scan Lower Extremity Artery 12/15/22 18:50 IMPRESSION: Patent visualized bilateral lower extremity arterial vasculature with normal multiphasic flow throughout. Medications Medications Current Medications Acetaminophen (Acetaminophen 325 Mg Tablet) 650 mg PO Q6H PRN PRN Reason: Headache/Pain Mild Scale (1-3) Last Admin: 12/17/22 21:20 Dose: 650 mg Al Hydroxide/Mg Hydroxide (Magnesium Hydrox/Alum Hydrox 30 Ml Oral.Susp) 30 ml PO Q6H PRN PRN Reason: Heartburn/Nausea Buprenorphine/Naloxone (Buprenorphine/Naloxone 12/3 Mg Film) 1 film SUBLINGUAL BID@0800,1500 [facility] Last Admin: 12/18/22 08:22 Dose: 1 film Clonidine HCl (Clonidine Hcl 0.1 Mg Tablet) 0.1 mg PO TID PRN; Protocol PRN Reason: anxiety/restlessness Gabapentin (Gabapentin 300 Mg Capsule) 600 mg PO TID [facility] Last Admin: 12/18/22 08:23 Dose: 600 mg Hydroxyzine HCl (Hydroxyzine Hcl 25 Mg Tablet) 25 mg PO Q6H PRN PRN Reason: Anxiety Last Admin: 12/17/22 21:20 Dose: 25 mg Magnesium Hydroxide (Milk Of Magnesia 30 Ml Oral.Susp) 30 ml PO DAILY PRN PRN Reason: Constipation Melatonin (Melatonin 3 Mg Tablet) 6 mg PO BEDTIME [facility] Last Admin: 12/17/22 21:21 Dose: 6 mg Methocarbamol (Methocarbamol 500 Mg Tablet) 500 mg PO TID PRN PRN Reason: Muscle Spasm Mirtazapine (Mirtazapine 30 Mg Tablet) 30 mg PO BEDTIME [facility] Last Admin: 12/17/22 21:21 Dose: 30 mg Multi-Ingred Cream/Lotion/Oil/Oint (Mineral Oil/Petrolatum,White 106 Gm Tube) 1 appl TOPICAL BID [facility]; Protocol Last Admin: 12/18/22 08:27 Dose: 1 appl Nicotine (Nicotine 21 Mg Patch.Td24) 21 mg TRANSDERMA DAILY [facility] Last Admin: 12/18/22 08:25 Dose: 21 mg Nicotine Polacrilex (Nicotine Polacrilex Lozenge 4 Mg Lozenge) 4 mg BUCCAL Q2H PRN PRN Reason: Nicotine Cravings Prazosin HCl (Prazosin Hcl 1 Mg Capsule) 2 mg PO BEDTIME [facility]; Protocol Last Admin: 12/17/22 21:21 Dose: 2 mg Trazodone HCl (Trazodone Hcl 50 Mg Tablet) 50 mg PO BEDTIME MRX1 PRN PRN Reason: Insomnia Last Admin: 12/16/22 21:26 Dose: 50 mg Valacyclovir HCl (Valacyclovir Hcl 1,000 Mg Tablet) 1,000 mg PO DAILY [facility] Last Admin: 12/18/22 08:23 Dose: 1,000 mg Allergies Allergies Allergy/AdvReac Type Severity Reaction Status Date / Time No Known Allergies Allergy Unverified 02/13/20 18:29 Assessment & Plan Assessment & Plan (1) PTSD (post-traumatic stress disorder): Status: Acute Code(s): F43.10 - Post-traumatic stress disorder, unspecified (2) Recurrent major depression-severe: Status: Acute Code(s): F33.2 - Major depressive disorder, recurrent severe without psychotic features (3) Opioid use disorder: Status: Acute Code(s): F11.90 - Opioid use, unspecified, uncomplicated (4) Cocaine use disorder: Status: Acute Code(s): F14.10 - Cocaine abuse, uncomplicated (5) Cannabis use disorder: Status: Acute Code(s): F12.90 - Cannabis use, unspecified, uncomplicated Plan 12/16/22 Continue current regime Eucerin cream for dry skin CSS planning for discharge 12/17: Increase Prazosin 2 mg HS. Consider further titration or Seroquel next. 12/18: Magic mouthwash. Increase Prazosin to 5 mg HS Reason for continued inpatient stay Substantial Risk for: harm to self and rapid decompensation Time Spent With Patient Time: Total time managing care of this patient today ____ minutes.
[2022-12-18] MEDS: Mag&Al/Sim/Diphenhyd/Lidocaine 10 ML ORAL.SUSP PO ×2 (13:55→19:02)
[2022-12-18] MEDS: hydrOXYzine HCL 25 MG TABLET PO (14:38)
[2022-12-18] MEDS: Acetaminophen 325 MG TABLET 650 MG PO (14:38)
[2022-12-18 17:40] VITALS: BP 129/65; PULSE 81; RESP 18; TEMP 36.3; O2SAT 96
[2022-12-18] MEDS: Nicotine Polacrilex Lozenge 4 MG LOZENGE BUCCAL (19:07)
[2022-12-18] MEDS: Milk of Magnesia 30 ML ORAL.SUSP PO (19:07)
[2022-12-18] MEDS: Mirtazapine 30 MG TABLET PO (21:57)
[2022-12-18] MEDS: Melatonin 3 MG TABLET 6 MG PO (21:57)
[2022-12-18] MEDS: Prazosin HCL 1 MG CAPSULE 2 MG PO (21:58)
[2022-12-18] MEDS: traZODone HCL 50 MG TABLET PO (21:58)
[2022-12-19 06:00] VITALS: BP 157/70; PULSE 63; RESP 16; TEMP 36.8; O2SAT 98
[2022-12-19] MEDS: Gabapentin 300 MG CAPSULE 600 MG PO ×3 (08:19→20:41)
[2022-12-19] MEDS: Nicotine 21 MG PATCH.TD24 TRANSDERMA (08:19)
[2022-12-19] MEDS: Buprenorphine/Naloxone 12/3 mg FILM 1 FILM SUBLINGUAL ×2 (08:19→14:23)
[2022-12-19] MEDS: valACYclovir HCL 1,000 MG TABLET 1000 MG PO (08:21)
[2022-12-19 09:22] LABS: Phosphorus 2.8 mg/dL (2.7-4.5)
[2022-12-19] MEDS: Mineral Oil/Petrolatum,White 106 GM Tube 1 APPL TOPICAL (09:31)
--- NOTE | 2022-12-19 14:26 | HO.PSYCHPN ---
Subjective Subjective Date of Service: 12/19/22 Reason For Visit: F32, F11.20, F14.10, F10.2 Subjective Notes: Conditional Voluntary Healthcare Proxy: No Guardianship: No Medical Problems Affecting Mental Status: No Interim History: Reviewed with team. Visable in milieu. Attending group. Continues with an isolative stance. Team reports he continues to focus on clothing needed from the donation source, however unit policy has been reviewed with him. Several [employer] applications have been sent in by team. Pt has been asked to connect with [place]. Medication Compliance: Yes Side effects from medications: No Attending Groups: Yes Review of Systems Acute medical concerns: No Medical Review of Systems: unchanged Mental Status Exam Mental Status Exam Patient Appearance: Appropriate Patient Orientation: Person, Place, Time and Situation Level of Consciousness: Alert Patient Behavior: Guarded, Distractible and Good Eye Contact Mood Description: Constricted and Hostile Affect Description: Constricted Patient Cognition Impaired: No Ability to Follow Directions: Good Speech Pattern: Spontaneous Speech Memory Description: Episodic Impaired Hallucinations: None Delusions: Not Present Perceptual Disturbances: Depersonalization and Derealization Thought Process: Rumination Thought Content: positive for Perseveration Judgement: Fair Diagnostics Vital Signs (24Hr): Vital Signs - 24 hr 12/18/22 17:40 12/19/22 06:00 Temperature 97.3 F 98.2 F Pulse Rate 81 63 Respiratory Rate 18 16 Blood Pressure 129/65 157/70 H Pulse Oximetry 96 98 Oxygen Delivery Method Room Air Room Air BMI result Body Mass Index 32.5 Labs 12/15/22 08:23 Labs: Laboratory Results - last 48 hr 12/18/22 12/19/22 07:21 08:12 Phosphorus 3.7 2.8 Imaging Radiology Impressions: ITS Impressions Foot X-Ray 12/15/22 18:30 IMPRESSION: Normal left foot. Foot X-Ray 12/15/22 18:30 IMPRESSION: Cortical irregularity at the tuft of the fifth distal phalanx with surrounding soft tissue thickening. This could be associated with osteomyelitis. Correlation with an MRI could be obtained as clinically indicated. Duplex Scan Lower Extremity Artery 12/15/22 18:50 IMPRESSION: Patent visualized bilateral lower extremity arterial vasculature with normal multiphasic flow throughout. Medications Medications Current Medications Acetaminophen (Acetaminophen 325 Mg Tablet) 650 mg PO Q6H PRN PRN Reason: Headache/Pain Mild Scale (1-3) Last Admin: 12/18/22 14:38 Dose: 650 mg Al Hydroxide/Mg Hydroxide (Magnesium Hydrox/Alum Hydrox 30 Ml Oral.Susp) 30 ml PO Q6H PRN PRN Reason: Heartburn/Nausea Buprenorphine/Naloxone (Buprenorphine/Naloxone 12/3 Mg Film) 1 film SUBLINGUAL BID@0800,1500 [facility] Last Admin: 12/19/22 08:19 Dose: 1 film Clonidine HCl (Clonidine Hcl 0.1 Mg Tablet) 0.1 mg PO TID PRN; Protocol PRN Reason: anxiety/restlessness Gabapentin (Gabapentin 300 Mg Capsule) 600 mg PO TID [facility] Last Admin: 12/19/22 08:19 Dose: 600 mg Hydroxyzine HCl (Hydroxyzine Hcl 25 Mg Tablet) 25 mg PO Q6H PRN PRN Reason: Anxiety Last Admin: 12/18/22 14:38 Dose: 25 mg Lidocaine/Diphenhydr/Alum/Mg/Simeth (Mag&Al/Sim/Diphenhyd/Lidocaine 10 Ml Oral.Susp) 10 ml PO Q4H PRN; Protocol PRN Reason: mouth pain Last Admin: 12/18/22 19:02 Dose: 10 ml Magnesium Hydroxide (Milk Of Magnesia 30 Ml Oral.Susp) 30 ml PO DAILY PRN PRN Reason: Constipation Last Admin: 12/18/22 19:07 Dose: 30 ml Melatonin (Melatonin 3 Mg Tablet) 6 mg PO BEDTIME [facility] Last Admin: 12/18/22 21:57 Dose: 6 mg Methocarbamol (Methocarbamol 500 Mg Tablet) 500 mg PO TID PRN PRN Reason: Muscle Spasm Mirtazapine (Mirtazapine 30 Mg Tablet) 30 mg PO BEDTIME [facility] Last Admin: 12/18/22 21:57 Dose: 30 mg Multi-Ingred Cream/Lotion/Oil/Oint (Mineral Oil/Petrolatum,White 106 Gm Tube) 1 appl TOPICAL BID [facility]; Protocol Last Admin: 12/19/22 09:31 Dose: 1 appl Nicotine (Nicotine 21 Mg Patch.Td24) 21 mg TRANSDERMA DAILY [facility] Last Admin: 12/19/22 08:19 Dose: 21 mg Nicotine Polacrilex (Nicotine Polacrilex Lozenge 4 Mg Lozenge) 4 mg BUCCAL Q2H PRN PRN Reason: Nicotine Cravings Last Admin: 12/18/22 19:07 Dose: 4 mg Prazosin HCl (Prazosin Hcl 1 Mg Capsule) 2 mg PO BEDTIME [facility]; Protocol Last Admin: 12/18/22 21:58 Dose: 2 mg Trazodone HCl (Trazodone Hcl 50 Mg Tablet) 50 mg PO BEDTIME MRX1 PRN PRN Reason: Insomnia Last Admin: 12/18/22 21:58 Dose: 50 mg Valacyclovir HCl (Valacyclovir Hcl 1,000 Mg Tablet) 1,000 mg PO DAILY [facility] Last Admin: 12/19/22 08:21 Dose: 1,000 mg Allergies Allergies Allergy/AdvReac Type Severity Reaction Status Date / Time No Known Allergies Allergy Unverified 02/13/20 18:29 Assessment & Plan Assessment & Plan (1) PTSD (post-traumatic stress disorder): Status: Acute Code(s): F43.10 - Post-traumatic stress disorder, unspecified (2) Recurrent major depression-severe: Status: Acute Code(s): F33.2 - Major depressive disorder, recurrent severe without psychotic features (3) Opioid use disorder: Status: Acute Code(s): F11.90 - Opioid use, unspecified, uncomplicated (4) Cocaine use disorder: Status: Acute Code(s): F14.10 - Cocaine abuse, uncomplicated (5) Cannabis use disorder: Status: Acute Code(s): F12.90 - Cannabis use, unspecified, uncomplicated Plan 12/16/22 Continue current regime Eucerin cream for dry skin CSS planning for discharge 12/17: Increase Prazosin 2 mg HS. Consider further titration or Seroquel next. 12/18: Magic mouthwash. Increase Prazosin to 5 mg HS 12/19/22: Continue current regime and plan of care. Informed Consent: understands Reason for continued inpatient stay Substantial Risk for: rapid decompensation Time Spent With Patient Time: Total time managing care of this patient today ____ minutes.
[2022-12-19 18:00] VITALS: BP 129/60; PULSE 73; TEMP 36.2; O2SAT 98
[2022-12-19] MEDS: Mirtazapine 30 MG TABLET PO (20:41)
[2022-12-19] MEDS: Prazosin HCL 1 MG CAPSULE 2 MG PO (20:41)
[2022-12-19] MEDS: Melatonin 3 MG TABLET 6 MG PO (20:41)
[2022-12-20 06:00] VITALS: BP 129/71; PULSE 72; RESP 18; TEMP 36.7; O2SAT 96
[2022-12-20] MEDS: Buprenorphine/Naloxone 12/3 mg FILM 1 FILM SUBLINGUAL ×2 (08:18→14:48)
[2022-12-20] MEDS: Nicotine 21 MG PATCH.TD24 TRANSDERMA ×2 (08:18→17:25)
[2022-12-20] MEDS: Acetaminophen 325 MG TABLET 650 MG PO (08:18)
[2022-12-20] MEDS: methocarbamoL 500 MG TABLET PO ×3 (08:18→22:49)
[2022-12-20] MEDS: valACYclovir HCL 1,000 MG TABLET 1000 MG PO (08:18)
[2022-12-20] MEDS: Gabapentin 300 MG CAPSULE 600 MG PO ×3 (08:19→22:49)
[2022-12-20] MEDS: hydrOXYzine HCL 25 MG TABLET PO ×2 (08:19→17:22)
[2022-12-20 09:20] LABS: Phosphorus 3.4 mg/dL (2.7-4.5)
--- NOTE | 2022-12-20 16:57 | P.PNPSI_ITS ---
Subjective Subjective Date of Service: 12/20/22 Reason For Visit: F32, F11.20, F14.10, F10.2 Subjective Notes: Conditional Voluntary Healthcare Proxy: No Guardianship: No Medical Problems Affecting Mental Status: No Interim History: Reports poor sleep. Anger about restrictions with clothing donation bin-encouraged to discuss with team. Focus of discussion. Discussed trial of Seroquel at HS with increase in Melatonin. Pt agrees. Medication Compliance: Yes Side effects from medications: Yes (poor sleep) Attending Groups: Yes Review of Systems Acute medical concerns: No Medical Review of Systems: unchanged Mental Status Exam Mental Status Exam Patient Appearance: Appropriate Patient Orientation: Person, Place, Time and Situation Level of Consciousness: Alert Patient Behavior: Guarded, Distractible and Good Eye Contact Mood Description: Constricted and Hostile Affect Description: Constricted Patient Cognition Impaired: No Ability to Follow Directions: Good Speech Pattern: Spontaneous Speech Memory Description: Episodic Impaired Hallucinations: None Delusions: Not Present Perceptual Disturbances: Depersonalization and Derealization Thought Process: Rumination Thought Content: positive for Perseveration Judgement: Fair Diagnostics Vital Signs (24Hr): Vital Signs - 24 hr 12/19/22 18:00 12/20/22 06:00 Temperature 97.2 F 98.1 F Pulse Rate 73 72 Respiratory Rate 18 Blood Pressure 129/60 129/71 Pulse Oximetry 98 96 Oxygen Delivery Method Room Air Room Air BMI result Body Mass Index 32.5 Labs 12/15/22 08:23 Labs: Laboratory Results - last 48 hr 12/19/22 12/20/22 08:12 08:43 Phosphorus 2.8 3.4 Imaging Radiology Impressions: ITS Impressions Foot X-Ray 12/15/22 18:30 IMPRESSION: Normal left foot. Foot X-Ray 12/15/22 18:30 IMPRESSION: Cortical irregularity at the tuft of the fifth distal phalanx with surrounding soft tissue thickening. This could be associated with osteomyelitis. Correlation with an MRI could be obtained as clinically indicated. Duplex Scan Lower Extremity Artery 12/15/22 18:50 IMPRESSION: Patent visualized bilateral lower extremity arterial vasculature with normal multiphasic flow throughout. Medications Medications Current Medications Acetaminophen (Acetaminophen 325 Mg Tablet) 650 mg PO Q6H PRN PRN Reason: Headache/Pain Mild Scale (1-3) Last Admin: 12/20/22 08:18 Dose: 650 mg Al Hydroxide/Mg Hydroxide (Magnesium Hydrox/Alum Hydrox 30 Ml Oral.Susp) 30 ml PO Q6H PRN PRN Reason: Heartburn/Nausea Buprenorphine/Naloxone (Buprenorphine/Naloxone 12/3 Mg Film) 1 film SUBLINGUAL BID@0800,1500 [facility] Last Admin: 12/20/22 14:48 Dose: 1 film Clonidine HCl (Clonidine Hcl 0.1 Mg Tablet) 0.1 mg PO TID PRN; Protocol PRN Reason: anxiety/restlessness Gabapentin (Gabapentin 300 Mg Capsule) 600 mg PO TID [facility] Last Admin: 12/20/22 14:48 Dose: 600 mg Hydroxyzine HCl (Hydroxyzine Hcl 25 Mg Tablet) 25 mg PO Q6H PRN PRN Reason: Anxiety Last Admin: 12/20/22 08:19 Dose: 25 mg Lidocaine/Diphenhydr/Alum/Mg/Simeth (Mag&Al/Sim/Diphenhyd/Lidocaine 10 Ml Oral.Susp) 10 ml PO Q4H PRN; Protocol PRN Reason: mouth pain Last Admin: 12/18/22 19:02 Dose: 10 ml Magnesium Hydroxide (Milk Of Magnesia 30 Ml Oral.Susp) 30 ml PO DAILY PRN PRN Reason: Constipation Last Admin: 12/18/22 19:07 Dose: 30 ml Melatonin (Melatonin 3 Mg Tablet) 10 mg PO BEDTIME [facility] Methocarbamol (Methocarbamol 500 Mg Tablet) 500 mg PO TID PRN PRN Reason: Muscle Spasm Last Admin: 12/20/22 08:18 Dose: 500 mg Mirtazapine (Mirtazapine 30 Mg Tablet) 30 mg PO BEDTIME [facility] Last Admin: 12/19/22 20:41 Dose: 30 mg Multi-Ingred Cream/Lotion/Oil/Oint (Mineral Oil/Petrolatum,White 106 Gm Tube) 1 appl TOPICAL BID [facility]; Protocol Last Admin: 12/20/22 09:00 Dose: Not Given Nicotine (Nicotine 21 Mg Patch.Td24) 21 mg TRANSDERMA DAILY [facility] Last Admin: 12/20/22 08:18 Dose: 21 mg Nicotine Polacrilex (Nicotine Polacrilex Lozenge 4 Mg Lozenge) 4 mg BUCCAL Q2H PRN PRN Reason: Nicotine Cravings Last Admin: 12/18/22 19:07 Dose: 4 mg Prazosin HCl (Prazosin Hcl 1 Mg Capsule) 2 mg PO BEDTIME [facility]; Protocol Last Admin: 12/19/22 20:41 Dose: 2 mg Quetiapine Fumarate (Quetiapine Fumarate 100 Mg Tablet) 100 mg PO BEDTIME [facility] Trazodone HCl (Trazodone Hcl 50 Mg Tablet) 50 mg PO BEDTIME MRX1 PRN PRN Reason: Insomnia Last Admin: 12/18/22 21:58 Dose: 50 mg Valacyclovir HCl (Valacyclovir Hcl 1,000 Mg Tablet) 1,000 mg PO DAILY [facility] Last Admin: 12/20/22 08:18 Dose: 1,000 mg Allergies Allergies Allergy/AdvReac Type Severity Reaction Status Date / Time No Known Allergies Allergy Unverified 02/13/20 18:29 Assessment & Plan Assessment & Plan (1) PTSD (post-traumatic stress disorder): Status: Acute Code(s): F43.10 - Post-traumatic stress disorder, unspecified (2) Recurrent major depression-severe: Status: Acute Code(s): F33.2 - Major depressive disorder, recurrent severe without psychotic features (3) Opioid use disorder: Status: Acute Code(s): F11.90 - Opioid use, unspecified, uncomplicated (4) Cocaine use disorder: Status: Acute Code(s): F14.10 - Cocaine abuse, uncomplicated (5) Cannabis use disorder: Status: Acute Code(s): F12.90 - Cannabis use, unspecified, uncomplicated Plan 12/16/22 Continue current regime Eucerin cream for dry skin CSS planning for discharge 12/17: Increase Prazosin 2 mg HS. Consider further titration or Seroquel next. 12/18: Magic mouthwash. Increase Prazosin to 5 mg HS 12/19/22: Continue current regime and plan of care. 12/20/22: Discontinue Trazodone Increase Melatonin to 10 mg HS Trial of Seroquel 100 mg HS Patient educated on: medication risk/benefits and therapeutic strategies Informed Consent: understands Reason for continued inpatient stay Substantial Risk for: rapid decompensation Time Spent With Patient Time: Total time managing care of this patient today ____ minutes.
[2022-12-20] MEDS: Milk of Magnesia 30 ML ORAL.SUSP PO (17:22)
[2022-12-20 17:28] VITALS: BP 152/69; PULSE 82; RESP 16; TEMP 36.6; O2SAT 98
[2022-12-20] MEDS: traZODone HCL 50 MG TABLET PO (22:48)
[2022-12-20] MEDS: Mirtazapine 30 MG TABLET PO (22:49)
[2022-12-20] MEDS: QUEtiapine Fumarate 100 MG TABLET PO (22:49)
[2022-12-20] MEDS: Melatonin 3 MG TABLET 10 MG PO (22:49)
[2022-12-20] MEDS: Prazosin HCL 1 MG CAPSULE 2 MG PO (22:49)
[2022-12-21] MEDS: Buprenorphine/Naloxone 12/3 mg FILM 1 FILM SUBLINGUAL ×2 (08:27→14:27)
[2022-12-21] MEDS: valACYclovir HCL 1,000 MG TABLET 1000 MG PO (08:27)
[2022-12-21] MEDS: Gabapentin 300 MG CAPSULE 600 MG PO (08:27)
[2022-12-21] MEDS: Nicotine 21 MG PATCH.TD24 TRANSDERMA (08:27)
[2022-12-21 08:30] VITALS: BP 104/56; PULSE 71; RESP 18; TEMP 36.3; O2SAT 97
--- NOTE | 2022-12-21 12:55 | P.PNPSI_ITS ---
Subjective Subjective Date of Service: 12/21/22 Reason For Visit: F32, F11.20, F14.10, F10.2 Subjective Notes: Conditional Voluntary Healthcare Proxy: No Guardianship: No Medical Problems Affecting Mental Status: No Interim History: Team reports BLE edema-diet change to 2 gram NA with compression stockings ordered. Reports increase in depression with SI. No CSS options at this time. I don't want to suffer anymore. If I go back to the street I will overdose on Fentanyl. Reports no family, friend option for assist. I have no friends . Discussed betrayal briefly Continues to express anger about not being allowed to get clothing from donation bin. Discussed adding Sertraline, increasing Gabapentin. Medication Compliance: Yes Side effects from medications: No Attending Groups: Intermittent Review of Systems Acute medical concerns: No Medical Review of Systems: unchanged Mental Status Exam Mental Status Exam Patient Appearance: Appropriate Patient Orientation: Person, Place, Time and Situation Level of Consciousness: Alert Patient Behavior: Guarded and Distractible Mood Description: Constricted, Depressed, Hostile and Angry Affect Description: Constricted, Angry and Flat Patient Cognition Impaired: No Ability to Follow Directions: Good Speech Pattern: Perseverating and Spontaneous Speech Memory Description: Episodic Impaired Hallucinations: None Delusions: Not Present Perceptual Disturbances: Depersonalization and Derealization Thought Process: Rumination Thought Content: positive for Perseveration and positive for Suicidal Ideation Depressive Symptoms: Thoughts of /Suicide Judgement: Fair Diagnostics Vital Signs (24Hr): Vital Signs - 24 hr 12/20/22 17:28 12/21/22 08:30 Temperature 97.8 F 97.4 F Pulse Rate 82 71 Respiratory Rate 16 18 Blood Pressure 152/69 H 104/56 L Pulse Oximetry 98 97 Oxygen Delivery Method Room Air Room Air BMI result Body Mass Index 32.5 Labs 12/15/22 08:23 Labs: Laboratory Results - last 48 hr 12/20/22 08:43 Phosphorus 3.4 Imaging Radiology Impressions: ITS Impressions Foot X-Ray 12/15/22 18:30 IMPRESSION: Normal left foot. Foot X-Ray 12/15/22 18:30 IMPRESSION: Cortical irregularity at the tuft of the fifth distal phalanx with surrounding soft tissue thickening. This could be associated with osteomyelitis. Correlation with an MRI could be obtained as clinically indicated. Duplex Scan Lower Extremity Artery 07/20/23 18:50 IMPRESSION: Patent visualized bilateral lower extremity arterial vasculature with normal multiphasic flow throughout. Medications Medications Current Medications Acetaminophen (Acetaminophen 325 Mg Tablet) 650 mg PO Q6H PRN PRN Reason: Headache/Pain Mild Scale (1-3) Last Admin: 12/20/22 08:18 Dose: 650 mg Al Hydroxide/Mg Hydroxide (Magnesium Hydrox/Alum Hydrox 30 Ml Oral.Susp) 30 ml PO Q6H PRN PRN Reason: Heartburn/Nausea Buprenorphine/Naloxone (Buprenorphine/Naloxone 12/3 Mg Film) 1 film SUBLINGUAL BID@0800,1500 [facility] Last Admin: 12/21/22 08:27 Dose: 1 film Clonidine HCl (Clonidine Hcl 0.1 Mg Tablet) 0.1 mg PO TID PRN; Protocol PRN Reason: anxiety/restlessness Gabapentin (Gabapentin 300 Mg Capsule) 600 mg PO TID [facility] Last Admin: 12/21/22 08:27 Dose: 600 mg Hydroxyzine HCl (Hydroxyzine Hcl 25 Mg Tablet) 25 mg PO Q6H PRN PRN Reason: Anxiety Last Admin: 12/20/22 17:22 Dose: 25 mg Lidocaine/Diphenhydr/Alum/Mg/Simeth (Mag&Al/Sim/Diphenhyd/Lidocaine 10 Ml Oral.Susp) 10 ml PO Q4H PRN; Protocol PRN Reason: mouth pain Last Admin: 12/18/22 19:02 Dose: 10 ml Magnesium Hydroxide (Milk Of Magnesia 30 Ml Oral.Susp) 30 ml PO DAILY PRN PRN Reason: Constipation Last Admin: 12/20/22 17:22 Dose: 30 ml Melatonin (Melatonin 3 Mg Tablet) 10 mg PO BEDTIME [facility] Last Admin: 12/20/22 22:49 Dose: 10 mg Methocarbamol (Methocarbamol 500 Mg Tablet) 500 mg PO TID PRN PRN Reason: Muscle Spasm Last Admin: 12/20/22 22:49 Dose: 500 mg Mirtazapine (Mirtazapine 30 Mg Tablet) 30 mg PO BEDTIME [facility] Last Admin: 12/20/22 22:49 Dose: 30 mg Multi-Ingred Cream/Lotion/Oil/Oint (Mineral Oil/Petrolatum,White 106 Gm Tube) 1 appl TOPICAL BID [facility]; Protocol Last Admin: 12/21/22 09:58 Dose: Not Given Nicotine (Nicotine 21 Mg Patch.Td24) 21 mg TRANSDERMA DAILY [facility] Last Admin: 12/21/22 08:27 Dose: 21 mg Nicotine Polacrilex (Nicotine Polacrilex Lozenge 4 Mg Lozenge) 4 mg BUCCAL Q2H PRN PRN Reason: Nicotine Cravings Last Admin: 12/18/22 19:07 Dose: 4 mg Prazosin HCl (Prazosin Hcl 1 Mg Capsule) 2 mg PO BEDTIME [facility]; Protocol Last Admin: 12/20/22 22:49 Dose: 2 mg Quetiapine Fumarate (Quetiapine Fumarate 100 Mg Tablet) 100 mg PO BEDTIME [facility] Last Admin: 12/20/22 22:49 Dose: 100 mg Trazodone HCl (Trazodone Hcl 50 Mg Tablet) 50 mg PO BEDTIME MRX1 PRN PRN Reason: Insomnia Last Admin: 12/20/22 22:48 Dose: 50 mg Valacyclovir HCl (Valacyclovir Hcl 1,000 Mg Tablet) 1,000 mg PO DAILY [facility] Last Admin: 12/21/22 08:27 Dose: 1,000 mg Allergies Allergies Allergy/AdvReac Type Severity Reaction Status Date / Time No Known Allergies Allergy Unverified 02/13/20 18:29 Assessment & Plan Assessment & Plan (1) PTSD (post-traumatic stress disorder): Status: Acute Code(s): F43.10 - Post-traumatic stress disorder, unspecified (2) Recurrent major depression-severe: Status: Acute Code(s): F33.2 - Major depressive disorder, recurrent severe without psychotic features (3) Opioid use disorder: Status: Acute Code(s): F11.90 - Opioid use, unspecified, uncomplicated (4) Cocaine use disorder: Status: Acute Code(s): F14.10 - Cocaine abuse, uncomplicated (5) Cannabis use disorder: Status: Acute Code(s): F12.90 - Cannabis use, unspecified, uncomplicated Plan 12/21/22 Increase Gabapentin to 800 mg tid Sertraline 25 mg a.m TEDS-bilateral- BLE edema 2 gram sodium diet Patient educated on: medication risk/benefits Informed Consent: understands Reason for continued inpatient stay Substantial Risk for: harm to self and rapid decompensation Time Spent With Patient Time: Total time managing care of this patient today ____ minutes.
[2022-12-21] MEDS: Gabapentin 400 MG CAPSULE 800 MG PO ×2 (14:26→22:36)
[2022-12-21] MEDS: methocarbamoL 500 MG TABLET PO ×2 (14:45→22:40)
--- NOTE | 2022-12-21 17:08 | PC.NURSE ---
PT reports edema of bilateral feet, non pitting. No pain reported. CAW made aware via tiger text.
[2022-12-21 22:30] VITALS: BP 145/73; PULSE 73; RESP 18; TEMP 37.1
[2022-12-21] MEDS: Melatonin 3 MG TABLET 10 MG PO (22:36)
[2022-12-21] MEDS: traZODone HCL 50 MG TABLET PO (22:36)
[2022-12-21] MEDS: Mirtazapine 30 MG TABLET PO (22:36)
[2022-12-21] MEDS: QUEtiapine Fumarate 100 MG TABLET PO (22:36)
[2022-12-21] MEDS: Prazosin HCL 1 MG CAPSULE 2 MG PO (22:36)
[2022-12-21] MEDS: hydrOXYzine HCL 25 MG TABLET PO (22:39)
--- NOTE | 2022-12-22 | ECG_ITS ---
Test Reason : EDEMA Blood Pressure : / mmHG Vent. Rate : 075 BPM Atrial Rate : 075 BPM P-R Int : 186 ms QRS Dur : 080 ms QT Int : 388 ms P-R-T Axes : 065 075 066 degrees QTc Int : 433 ms Normal sinus rhythm Normal ECG When compared with ECG of 15-DEC-2022 09:42, No significant change was found Referred By: Alayna Parry Electronically Signed By:EDGARDO STONE MD
[2022-12-22 06:00] VITALS: BP 138/75; PULSE 85; RESP 16; TEMP 36.4; O2SAT 95
[2022-12-22 07:00] VITALS: BMI 35.5
[2022-12-22] MEDS: valACYclovir HCL 1,000 MG TABLET 1000 MG PO (08:29)
[2022-12-22] MEDS: Nicotine 21 MG PATCH.TD24 TRANSDERMA (08:29)
[2022-12-22] MEDS: Gabapentin 400 MG CAPSULE 800 MG PO ×2 (08:29→14:33)
[2022-12-22] MEDS: Sertraline HCL 25 MG TABLET PO (08:29)
[2022-12-22] MEDS: Buprenorphine/Naloxone 12/3 mg FILM 1 FILM SUBLINGUAL ×2 (08:29→14:34)
[2022-12-22] MEDS: methocarbamoL 500 MG TABLET PO (08:42)
[2022-12-22] MEDS: hydrOXYzine HCL 25 MG TABLET PO (08:42)
--- NOTE | 2022-12-22 10:37 | HO.PSYCHPN ---
Subjective Subjective Date of Service: 12/22/22 Reason For Visit: F32, F11.20, F14.10, F10.2 Subjective Notes: Conditional Voluntary Healthcare Proxy: No Guardianship: No Medical Problems Affecting Mental Status: No Interim History: Pt reports pedal edema, diagnostics ordered to rule out cardiac, CHF, hospitalist consultation ordered as pt had been seen by their team and surgery for necrosis of toes. Pt reports he has tolerated medicine changes without SE. He is in a difficult space. CSS programs currently have no openings. Pt states if we do not find him a place to reside he will overdose/suicide as he is too tired of being without resources on the street. Medication Compliance: Yes Side effects from medications: No Attending Groups: Intermittent Review of Systems Acute medical concerns: No Medical Review of Systems: unchanged Mental Status Exam Mental Status Exam Patient Appearance: Appropriate Patient Orientation: Person, Place, Time and Situation Level of Consciousness: Alert Patient Behavior: Guarded and Distractible Mood Description: Constricted, Depressed, Hostile and Angry Affect Description: Constricted, Angry and Flat Patient Cognition Impaired: No Ability to Follow Directions: Good Speech Pattern: Perseverating and Spontaneous Speech Memory Description: Episodic Impaired Hallucinations: None Delusions: Not Present Perceptual Disturbances: Depersonalization and Derealization Thought Process: Rumination Thought Content: positive for Perseveration and positive for Suicidal Ideation Depressive Symptoms: Thoughts of /Suicide Judgement: Fair Diagnostics Vital Signs (24Hr): Vital Signs - 24 hr 12/21/22 22:30 12/22/22 06:00 Temperature 98.7 F 97.5 F Pulse Rate 73 85 Respiratory Rate 18 16 Blood Pressure 145/73 H 138/75 Pulse Oximetry 95 Oxygen Delivery Method Room Air BMI result Body Mass Index 32.5 Labs 12/15/22 08:23 Imaging Radiology Impressions: ITS Impressions Foot X-Ray 12/15/22 18:30 IMPRESSION: Normal left foot. Foot X-Ray 12/15/22 18:30 IMPRESSION: Cortical irregularity at the tuft of the fifth distal phalanx with surrounding soft tissue thickening. This could be associated with osteomyelitis. Correlation with an MRI could be obtained as clinically indicated. Duplex Scan Lower Extremity Artery 12/15/22 18:50 IMPRESSION: Patent visualized bilateral lower extremity arterial vasculature with normal multiphasic flow throughout. Medications Medications Current Medications Acetaminophen (Acetaminophen 325 Mg Tablet) 650 mg PO Q6H PRN PRN Reason: Headache/Pain Mild Scale (1-3) Last Admin: 12/20/22 08:18 Dose: 650 mg Al Hydroxide/Mg Hydroxide (Magnesium Hydrox/Alum Hydrox 30 Ml Oral.Susp) 30 ml PO Q6H PRN PRN Reason: Heartburn/Nausea Buprenorphine/Naloxone (Buprenorphine/Naloxone 12/3 Mg Film) 1 film SUBLINGUAL BID@0800,1500 [facility] Last Admin: 12/22/22 08:29 Dose: 1 film Clonidine HCl (Clonidine Hcl 0.1 Mg Tablet) 0.1 mg PO TID PRN; Protocol PRN Reason: anxiety/restlessness Gabapentin (Gabapentin 400 Mg Capsule) 800 mg PO TID [facility] Last Admin: 12/22/22 08:29 Dose: 800 mg Hydroxyzine HCl (Hydroxyzine Hcl 25 Mg Tablet) 25 mg PO Q6H PRN PRN Reason: Anxiety Last Admin: 12/22/22 08:42 Dose: 25 mg Lidocaine/Diphenhydr/Alum/Mg/Simeth (Mag&Al/Sim/Diphenhyd/Lidocaine 10 Ml Oral.Susp) 10 ml PO Q4H PRN; Protocol PRN Reason: mouth pain Last Admin: 12/18/22 19:02 Dose: 10 ml Magnesium Hydroxide (Milk Of Magnesia 30 Ml Oral.Susp) 30 ml PO DAILY PRN PRN Reason: Constipation Last Admin: 12/20/22 17:22 Dose: 30 ml Melatonin (Melatonin 3 Mg Tablet) 10 mg PO BEDTIME [facility] Last Admin: 12/21/22 22:36 Dose: 9 mg Methocarbamol (Methocarbamol 500 Mg Tablet) 500 mg PO TID PRN PRN Reason: Muscle Spasm Last Admin: 12/22/22 08:42 Dose: 500 mg Mirtazapine (Mirtazapine 30 Mg Tablet) 30 mg PO BEDTIME [facility] Last Admin: 12/21/22 22:36 Dose: 30 mg Multi-Ingred Cream/Lotion/Oil/Oint (Mineral Oil/Petrolatum,White 106 Gm Tube) 1 appl TOPICAL BID [facility]; Protocol Last Admin: 12/22/22 09:29 Dose: Not Given Nicotine (Nicotine 21 Mg Patch.Td24) 21 mg TRANSDERMA DAILY [facility] Last Admin: 12/22/22 08:29 Dose: 21 mg Nicotine Polacrilex (Nicotine Polacrilex Lozenge 4 Mg Lozenge) 4 mg BUCCAL Q2H PRN PRN Reason: Nicotine Cravings Last Admin: 12/18/22 19:07 Dose: 4 mg Prazosin HCl (Prazosin Hcl 1 Mg Capsule) 2 mg PO BEDTIME [facility]; Protocol Last Admin: 12/21/22 22:36 Dose: 2 mg Quetiapine Fumarate (Quetiapine Fumarate 100 Mg Tablet) 100 mg PO BEDTIME [facility] Last Admin: 12/21/22 22:36 Dose: 100 mg Sertraline HCl (Sertraline Hcl 25 Mg Tablet) 25 mg PO DAILY [facility] Last Admin: 12/22/22 08:29 Dose: 25 mg Trazodone HCl (Trazodone Hcl 50 Mg Tablet) 50 mg PO BEDTIME MRX1 PRN PRN Reason: Insomnia Last Admin: 12/21/22 22:36 Dose: 50 mg Valacyclovir HCl (Valacyclovir Hcl 1,000 Mg Tablet) 1,000 mg PO DAILY [facility] Last Admin: 12/22/22 08:29 Dose: 1,000 mg Allergies Allergies Allergy/AdvReac Type Severity Reaction Status Date / Time No Known Allergies Allergy Unverified 02/13/20 18:29 Assessment & Plan Assessment & Plan (1) PTSD (post-traumatic stress disorder): Status: Acute Code(s): F43.10 - Post-traumatic stress disorder, unspecified (2) Recurrent major depression-severe: Status: Acute Code(s): F33.2 - Major depressive disorder, recurrent severe without psychotic features (3) Opioid use disorder: Status: Acute Code(s): F11.90 - Opioid use, unspecified, uncomplicated (4) Cocaine use disorder: Status: Acute Code(s): F14.10 - Cocaine abuse, uncomplicated (5) Cannabis use disorder: Status: Acute Code(s): F12.90 - Cannabis use, unspecified, uncomplicated Plan 12/21/22 Increase Gabapentin to 800 mg tid Sertraline 25 mg a.m TEDS-bilateral- BLE edema 2 gram sodium diet 12/22/22 Diagnostics for edema to r/o CHF,cardiac sx. Hospitalist consult as pt has been seen for dry necrosis of toes Continue current regime Continue CSS application process-pt has limited applications to local programs Patient educated on: therapeutic strategies Informed Consent: understands Reason for continued inpatient stay Substantial Risk for: rapid decompensation Time Spent With Patient Time: Total time managing care of this patient today ____ minutes.
[2022-12-22 14:18] LABS: Alanine Aminotransferase 99 U/L (0-40); Albumin Level 3.5 g/dL (3.5-5.0); Alkaline Phosphatase 162 U/L (39-117); Anion Gap 15 (12-20); Aspartate Amino Transferase 71 U/L (5-37); Bilirubin Total 0.1 mg/dL (0.0-1.0); Blood Urea Nitrogen 13 mg/dL (9-16); Calcium 9.2 mg/dL (8.4-10.2); Carbon Dioxide 21 mmol/L (22-29); Chloride 104 mmol/L (96-108); Estimated Glomerular Filt Rate > 60; Glucose Random 161 mg/dL (60-115); Potassium 4.4 mmol/L (3.3-5.1); Sodium 136 mmol/L (135-145); Total Protein 7.2 g/dL (6.5-8.0)
[2022-12-23 06:00] VITALS: BP 165/98; PULSE 63; RESP 18; TEMP 36.8; O2SAT 98
[2022-12-23] MEDS: Buprenorphine/Naloxone 12/3 mg FILM 1 FILM SUBLINGUAL ×2 (08:25→14:02)
[2022-12-23] MEDS: Nicotine 21 MG PATCH.TD24 TRANSDERMA (08:37)
[2022-12-23] MEDS: Gabapentin 400 MG CAPSULE 800 MG PO ×3 (08:38→22:37)
[2022-12-23] MEDS: valACYclovir HCL 1,000 MG TABLET 1000 MG PO (08:38)
[2022-12-23] MEDS: Sertraline HCL 25 MG TABLET PO (08:38)
[2022-12-23] MEDS: hydrOXYzine HCL 25 MG TABLET PO ×2 (14:02→22:36)
[2022-12-23] MEDS: methocarbamoL 500 MG TABLET PO ×2 (14:02→22:36)
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
--- NOTE | 2022-12-23 20:53 | MHC.RECOVSUP ---
? Reason for consult:MATHEW o? Current location:517-2? o? Identified substance use concern:? -? Support ? Intervention: o? Community resources provided o? Harm reduction discussion ? Plan:Outpatient services ? Additional information:RC met with this pt and spoke about harm reduction strategies as well as treatment options, pt was interested in [facility] as well as services at [facility]. provided this pt with recovery resources and business card.
[2022-12-23 22:30] VITALS: BP 143/80; PULSE 66; RESP 18; TEMP 36.6
[2022-12-23] MEDS: Prazosin HCL 1 MG CAPSULE 3 MG PO (22:36)
[2022-12-23] MEDS: Mirtazapine 30 MG TABLET PO (22:37)
[2022-12-23] MEDS: QUEtiapine Fumarate 100 MG TABLET PO (22:37)
[2022-12-23] MEDS: traZODone HCL 50 MG TABLET PO (22:37)
[2022-12-23] MEDS: Melatonin 3 MG TABLET 10 MG PO (22:37)
[2022-12-23] MEDS: OLANZapine 5 MG TABLET PO (22:38)
[2022-12-24] MEDS: Buprenorphine/Naloxone 12/3 mg FILM 1 FILM SUBLINGUAL ×2 (09:50→14:39)
[2022-12-24] MEDS: valACYclovir HCL 1,000 MG TABLET 1000 MG PO (09:50)
[2022-12-24] MEDS: Gabapentin 400 MG CAPSULE 800 MG PO ×3 (09:50→21:08)
[2022-12-24] MEDS: Sertraline HCL 25 MG TABLET PO (09:50)
[2022-12-24] MEDS: Nicotine 21 MG PATCH.TD24 TRANSDERMA (09:50)
[2022-12-24 09:59] VITALS: BP 117/58; PULSE 72; RESP 16; TEMP 36.6; O2SAT 96
--- NOTE | 2022-12-24 12:10 | HO.PSYCHPN ---
Subjective Subjective Date of Service: 12/24/22 Reason For Visit: F32, F11.20, F14.10, F10.2 Subjective Notes: Conditional Voluntary Healthcare Proxy: No Guardianship: No Medical Problems Affecting Mental Status: No Interim History: Patient was seen and discussed in rounds today. Records and plans were reviewed. He has been very preoccupied with being homeless but has been a little more hopeful since some options of,. He feels that the medications are also helpful. He is generally brighter in his affect. He is focused on being substance free and clean. Eating and sleeping adequately. No SI. No changes Medication Compliance: Yes (ere made today) Side effects from medications: No Attending Groups: Yes Review of Systems Review of Systems Yes all other systems are reviewed and are negative Mental Status Exam Mental Status Exam Patient Appearance: Appropriate Patient Orientation: Person, Place, Time and Situation Level of Consciousness: Alert Patient Behavior: Appropriate, Talkative, Cooperative and Good Eye Contact Mood Description: Anxious and Apprehensive Affect Description: Anxious, Flat and Apprehensive Patient Cognition Impaired: No Ability to Follow Directions: Good Speech Pattern: Spontaneous Speech Memory Description: Episodic Impaired Hallucinations: None Delusions: Not Present Perceptual Disturbances: Depersonalization and Derealization Thought Process: Rumination Thought Content: positive for Perseveration Judgement: Good Diagnostics Vital Signs (24Hr): Vital Signs - 24 hr 12/23/22 22:30 12/24/22 09:59 Temperature 97.8 F 97.8 F Pulse Rate 66 72 Respiratory Rate 18 16 Blood Pressure 143/80 H 117/58 L Pulse Oximetry 96 Oxygen Delivery Method Room Air BMI result Body Mass Index 35.5 Labs 12/22/22 13:43 Labs: Laboratory Results - last 48 hr 12/22/22 13:43 Sodium 136 Potassium 4.4 D Chloride 104 Carbon Dioxide 21 L Anion Gap 15 BUN 13 Creatinine 0.86 Estim Creat Clear Calc 125.0 Estimated GFR > 60 Random Glucose 161 H Calcium 9.2 Total Bilirubin 0.1 AST 71 H ALT 99 H Alkaline Phosphatase 162 H Total Protein 7.2 Albumin 3.5 Imaging Radiology Impressions: ITS Impressions Foot X-Ray 12/15/22 18:30 IMPRESSION: Normal left foot. Foot X-Ray 12/15/22 18:30 IMPRESSION: Cortical irregularity at the tuft of the fifth distal phalanx with surrounding soft tissue thickening. This could be associated with osteomyelitis. Correlation with an MRI could be obtained as clinically indicated. Duplex Scan Lower Extremity Artery 12/15/22 18:50 IMPRESSION: Patent visualized bilateral lower extremity arterial vasculature with normal multiphasic flow throughout. Medications Medications Current Medications Acetaminophen (Acetaminophen 325 Mg Tablet) 650 mg PO Q6H PRN PRN Reason: Headache/Pain Mild Scale (1-3) Last Admin: 12/20/22 08:18 Dose: 650 mg Al Hydroxide/Mg Hydroxide (Magnesium Hydrox/Alum Hydrox 30 Ml Oral.Susp) 30 ml PO Q6H PRN PRN Reason: Heartburn/Nausea Buprenorphine/Naloxone (Buprenorphine/Naloxone 12/3 Mg Film) 1 film SUBLINGUAL BID@0800,1500 [facility] Last Admin: 12/24/22 09:50 Dose: 1 film Clonidine HCl (Clonidine Hcl 0.1 Mg Tablet) 0.1 mg PO TID PRN; Protocol PRN Reason: anxiety/restlessness Gabapentin (Gabapentin 400 Mg Capsule) 800 mg PO TID [facility] Last Admin: 12/24/22 09:50 Dose: 800 mg Hydroxyzine HCl (Hydroxyzine Hcl 25 Mg Tablet) 25 mg PO Q6H PRN PRN Reason: Anxiety Last Admin: 12/23/22 22:36 Dose: 25 mg Lidocaine/Diphenhydr/Alum/Mg/Simeth (Mag&Al/Sim/Diphenhyd/Lidocaine 10 Ml Oral.Susp) 10 ml PO Q4H PRN; Protocol PRN Reason: mouth pain Last Admin: 12/18/22 19:02 Dose: 10 ml Magnesium Hydroxide (Milk Of Magnesia 30 Ml Oral.Susp) 30 ml PO DAILY PRN PRN Reason: Constipation Last Admin: 12/20/22 17:22 Dose: 30 ml Melatonin (Melatonin 3 Mg Tablet) 10 mg PO BEDTIME [facility] Last Admin: 12/23/22 22:37 Dose: 9 mg Methocarbamol (Methocarbamol 500 Mg Tablet) 500 mg PO TID PRN PRN Reason: Muscle Spasm Last Admin: 12/23/22 22:36 Dose: 500 mg Mirtazapine (Mirtazapine 30 Mg Tablet) 30 mg PO BEDTIME [facility] Last Admin: 12/23/22 22:37 Dose: 30 mg Multi-Ingred Cream/Lotion/Oil/Oint (Mineral Oil/Petrolatum,White 106 Gm Tube) 1 appl TOPICAL BID [facility]; Protocol Last Admin: 12/24/22 09:50 Dose: Not Given Nicotine (Nicotine 21 Mg Patch.Td24) 21 mg TRANSDERMA DAILY [facility] Last Admin: 12/24/22 09:50 Dose: 21 mg Nicotine Polacrilex (Nicotine Polacrilex Lozenge 4 Mg Lozenge) 4 mg BUCCAL Q2H PRN PRN Reason: Nicotine Cravings Last Admin: 12/18/22 19:07 Dose: 4 mg Olanzapine (Olanzapine 5 Mg Tablet) 5 mg PO BEDTIME [facility] Last Admin: 12/23/22 22:38 Dose: 5 mg Prazosin HCl (Prazosin Hcl 1 Mg Capsule) 3 mg PO BEDTIME [facility]; Protocol Last Admin: 12/23/22 22:36 Dose: 3 mg Quetiapine Fumarate (Quetiapine Fumarate 100 Mg Tablet) 100 mg PO BEDTIME [facility] Last Admin: 12/23/22 22:37 Dose: 100 mg Sertraline HCl (Sertraline Hcl 25 Mg Tablet) 25 mg PO DAILY [facility] Last Admin: 12/24/22 09:50 Dose: 25 mg Trazodone HCl (Trazodone Hcl 50 Mg Tablet) 50 mg PO BEDTIME MRX1 PRN PRN Reason: Insomnia Last Admin: 12/23/22 22:37 Dose: 50 mg Valacyclovir HCl (Valacyclovir Hcl 1,000 Mg Tablet) 1,000 mg PO DAILY [facility] Last Admin: 12/24/22 09:50 Dose: 1,000 mg Allergies Allergies Allergy/AdvReac Type Severity Reaction Status Date / Time No Known Allergies Allergy Unverified 02/13/20 18:29 Assessment & Plan Assessment & Plan (1) PTSD (post-traumatic stress disorder): Status: Acute Code(s): F43.10 - Post-traumatic stress disorder, unspecified (2) Recurrent major depression-severe: Status: Acute Code(s): F33.2 - Major depressive disorder, recurrent severe without psychotic features (3) Opioid use disorder: Status: Acute Code(s): F11.90 - Opioid use, unspecified, uncomplicated (4) Cocaine use disorder: Status: Acute Code(s): F14.10 - Cocaine abuse, uncomplicated (5) Cannabis use disorder: Status: Acute Code(s): F12.90 - Cannabis use, unspecified, uncomplicated Plan 12/21/22 Increase Gabapentin to 800 mg tid Sertraline 25 mg a.m TEDS-bilateral- BLE edema 2 gram sodium diet 12/22/22 Diagnostics for edema to r/o CHF,cardiac sx. Hospitalist consult as pt has been seen for dry necrosis of toes Continue current regime Continue CSS application process-pt has limited applications to local programs 12/23/22 Continue current plan Hospitalist consult, elevated LFT panel, pedal edema 12/24: Continue current regimen and plans Reason for continued inpatient stay Substantial Risk for: med/psych decompensation Time Spent With Patient Time: Total time managing care of this patient today ____ minutes.
[2022-12-24] MEDS: methocarbamoL 500 MG TABLET PO (14:41)
[2022-12-24] MEDS: hydrOXYzine HCL 25 MG TABLET PO (14:41)
[2022-12-24 18:00] VITALS: BP 127/60; PULSE 64; RESP 18; TEMP 36.7; O2SAT 94
[2022-12-24] MEDS: Prazosin HCL 1 MG CAPSULE 3 MG PO (21:08)
[2022-12-24] MEDS: Melatonin 3 MG TABLET 10 MG PO (21:08)
[2022-12-24] MEDS: traZODone HCL 50 MG TABLET PO (21:08)
[2022-12-24] MEDS: Mirtazapine 30 MG TABLET PO (21:08)
[2022-12-24] MEDS: OLANZapine 5 MG TABLET PO (21:08)
[2022-12-24] MEDS: QUEtiapine Fumarate 100 MG TABLET PO (21:09)
[2022-12-25] MEDS: valACYclovir HCL 1,000 MG TABLET 1000 MG PO (08:16)
[2022-12-25] MEDS: Sertraline HCL 25 MG TABLET PO (08:16)
[2022-12-25] MEDS: Gabapentin 400 MG CAPSULE 800 MG PO ×3 (08:17→21:19)
[2022-12-25 08:25] VITALS: BP 122/59; PULSE 62; RESP 14; TEMP 36.1; O2SAT 96
[2022-12-25] MEDS: Buprenorphine/Naloxone 12/3 mg FILM 1 FILM SUBLINGUAL ×2 (08:29→14:35)
[2022-12-25] MEDS: Nicotine 21 MG PATCH.TD24 TRANSDERMA (08:46)
--- NOTE | 2022-12-25 11:00 | P.PNPSI_ITS ---
Subjective Subjective Date of Service: 12/25/22 Reason For Visit: F32, F11.20, F14.10, F10.2 Subjective Notes: Conditional Voluntary Healthcare Proxy: No Guardianship: No Medical Problems Affecting Mental Status: No Interim History: Patient was seen and discussed in rounds today. Records and plans were reviewed. He has been stable and is doing very well. Eating and sleeping adequately. No complaints or side effects. No changes were made today Medication Compliance: Yes (ere made today) Side effects from medications: No Attending Groups: Yes Review of Systems Review of Systems Yes all other systems are reviewed and are negative Mental Status Exam Mental Status Exam Patient Appearance: Appropriate Patient Orientation: Person, Place, Time and Situation Level of Consciousness: Alert Patient Behavior: Appropriate, Talkative, Cooperative and Good Eye Contact Mood Description: Anxious and Apprehensive Affect Description: Anxious, Flat and Apprehensive Patient Cognition Impaired: No Ability to Follow Directions: Good Speech Pattern: Spontaneous Speech Memory Description: Episodic Impaired Hallucinations: None Delusions: Not Present Perceptual Disturbances: Depersonalization and Derealization Thought Process: Rumination Thought Content: positive for Perseveration Judgement: Good Diagnostics Vital Signs (24Hr): Vital Signs - 24 hr 12/24/22 18:00 12/25/22 08:25 Temperature 98.0 F 97 F Pulse Rate 64 62 Respiratory Rate 18 14 Blood Pressure 127/60 122/59 L Pulse Oximetry 94 96 Oxygen Delivery Method Room Air Room Air BMI result Body Mass Index 35.5 Labs 12/22/22 13:43 Imaging Radiology Impressions: ITS Impressions Foot X-Ray 12/15/22 18:30 IMPRESSION: Normal left foot. Foot X-Ray 12/15/22 18:30 IMPRESSION: Cortical irregularity at the tuft of the fifth distal phalanx with surrounding soft tissue thickening. This could be associated with osteomyelitis. Correlation with an MRI could be obtained as clinically indicated. Duplex Scan Lower Extremity Artery 12/15/22 18:50 IMPRESSION: Patent visualized bilateral lower extremity arterial vasculature with normal multiphasic flow throughout. Medications Medications Current Medications Acetaminophen (Acetaminophen 325 Mg Tablet) 650 mg PO Q6H PRN PRN Reason: Headache/Pain Mild Scale (1-3) Last Admin: 12/20/22 08:18 Dose: 650 mg Al Hydroxide/Mg Hydroxide (Magnesium Hydrox/Alum Hydrox 30 Ml Oral.Susp) 30 ml PO Q6H PRN PRN Reason: Heartburn/Nausea Buprenorphine/Naloxone (Buprenorphine/Naloxone 12/3 Mg Film) 1 film SUBLINGUAL BID@0800,1500 [facility] Last Admin: 12/25/22 08:29 Dose: 1 film Clonidine HCl (Clonidine Hcl 0.1 Mg Tablet) 0.1 mg PO TID PRN; Protocol PRN Reason: anxiety/restlessness Gabapentin (Gabapentin 400 Mg Capsule) 800 mg PO TID [facility] Last Admin: 12/25/22 08:17 Dose: 800 mg Hydroxyzine HCl (Hydroxyzine Hcl 25 Mg Tablet) 25 mg PO Q6H PRN PRN Reason: Anxiety Last Admin: 12/24/22 14:41 Dose: 25 mg Lidocaine/Diphenhydr/Alum/Mg/Simeth (Mag&Al/Sim/Diphenhyd/Lidocaine 10 Ml Oral.Susp) 10 ml PO Q4H PRN; Protocol PRN Reason: mouth pain Last Admin: 12/18/22 19:02 Dose: 10 ml Magnesium Hydroxide (Milk Of Magnesia 30 Ml Oral.Susp) 30 ml PO DAILY PRN PRN Reason: Constipation Last Admin: 12/20/22 17:22 Dose: 30 ml Melatonin (Melatonin 3 Mg Tablet) 10 mg PO BEDTIME [facility] Last Admin: 12/24/22 21:08 Dose: 10 mg Methocarbamol (Methocarbamol 500 Mg Tablet) 500 mg PO TID PRN PRN Reason: Muscle Spasm Last Admin: 12/24/22 14:41 Dose: 500 mg Mirtazapine (Mirtazapine 30 Mg Tablet) 30 mg PO BEDTIME [facility] Last Admin: 12/24/22 21:08 Dose: 30 mg Multi-Ingred Cream/Lotion/Oil/Oint (Mineral Oil/Petrolatum,White 106 Gm Tube) 1 appl TOPICAL BID [facility]; Protocol Last Admin: 12/25/22 08:47 Dose: Not Given Nicotine (Nicotine 21 Mg Patch.Td24) 21 mg TRANSDERMA DAILY [facility] Last Admin: 12/25/22 08:46 Dose: 21 mg Nicotine Polacrilex (Nicotine Polacrilex Lozenge 4 Mg Lozenge) 4 mg BUCCAL Q2H PRN PRN Reason: Nicotine Cravings Last Admin: 12/18/22 19:07 Dose: 4 mg Olanzapine (Olanzapine 5 Mg Tablet) 5 mg PO BEDTIME [facility] Last Admin: 12/24/22 21:08 Dose: 5 mg Prazosin HCl (Prazosin Hcl 1 Mg Capsule) 3 mg PO BEDTIME [facility]; Protocol Last Admin: 12/24/22 21:08 Dose: 3 mg Quetiapine Fumarate (Quetiapine Fumarate 100 Mg Tablet) 100 mg PO BEDTIME [facility] Last Admin: 12/24/22 21:09 Dose: 100 mg Sertraline HCl (Sertraline Hcl 25 Mg Tablet) 25 mg PO DAILY [facility] Last Admin: 12/25/22 08:16 Dose: 25 mg Trazodone HCl (Trazodone Hcl 50 Mg Tablet) 50 mg PO BEDTIME MRX1 PRN PRN Reason: Insomnia Last Admin: 12/24/22 21:08 Dose: 50 mg Valacyclovir HCl (Valacyclovir Hcl 1,000 Mg Tablet) 1,000 mg PO DAILY [facility] Last Admin: 12/25/22 08:16 Dose: 1,000 mg Allergies Allergies Allergy/AdvReac Type Severity Reaction Status Date / Time No Known Allergies Allergy Unverified 02/13/20 18:29 Assessment & Plan Assessment & Plan (1) PTSD (post-traumatic stress disorder): Status: Acute Code(s): F43.10 - Post-traumatic stress disorder, unspecified (2) Recurrent major depression-severe: Status: Acute Code(s): F33.2 - Major depressive disorder, recurrent severe without psychotic features (3) Opioid use disorder: Status: Acute Code(s): F11.90 - Opioid use, unspecified, uncomplicated (4) Cocaine use disorder: Status: Acute Code(s): F14.10 - Cocaine abuse, uncomplicated (5) Cannabis use disorder: Status: Acute Code(s): F12.90 - Cannabis use, unspecified, uncomplicated Plan 12/21/22 Increase Gabapentin to 800 mg tid Sertraline 25 mg a.m TEDS-bilateral- BLE edema 2 gram sodium diet 12/22/22 Diagnostics for edema to r/o CHF,cardiac sx. Hospitalist consult as pt has been seen for dry necrosis of toes Continue current regime Continue CSS application process-pt has limited applications to local programs 12/23/22 Continue current plan Hospitalist consult, elevated LFT panel, pedal edema 12/24: Continue current regimen and plans 12/25: Continue current plans and regimen Reason for continued inpatient stay Substantial Risk for: med/psych decompensation Time Spent With Patient Time: Total time managing care of this patient today ____ minutes.
[2022-12-25 21:15] VITALS: BP 138/64
[2022-12-25] MEDS: methocarbamoL 500 MG TABLET PO (21:19)
[2022-12-25] MEDS: OLANZapine 5 MG TABLET PO (21:19)
[2022-12-25] MEDS: Prazosin HCL 1 MG CAPSULE 3 MG PO (21:19)
[2022-12-25] MEDS: QUEtiapine Fumarate 100 MG TABLET PO (21:20)
[2022-12-25] MEDS: Mirtazapine 30 MG TABLET PO (21:20)
[2022-12-25] MEDS: Melatonin 3 MG TABLET 10 MG PO (21:20)
[2022-12-25] MEDS: hydrOXYzine HCL 25 MG TABLET PO (21:21)
[2022-12-26 06:00] VITALS: BP 132/77; PULSE 82; RESP 16; TEMP 36.1; O2SAT 95
[2022-12-26] MEDS: Mineral Oil/Petrolatum,White 106 GM Tube 1 APPL TOPICAL (08:59)
[2022-12-26] MEDS: Gabapentin 400 MG CAPSULE 800 MG PO ×3 (08:59→21:20)
[2022-12-26] MEDS: valACYclovir HCL 1,000 MG TABLET 1000 MG PO (08:59)
[2022-12-26] MEDS: Sertraline HCL 25 MG TABLET PO (08:59)
[2022-12-26] MEDS: Buprenorphine/Naloxone 12/3 mg FILM 1 FILM SUBLINGUAL ×2 (08:59→14:13)
[2022-12-26] MEDS: Nicotine 21 MG PATCH.TD24 TRANSDERMA (08:59)
--- NOTE | 2022-12-26 10:32 | HO.PSYCHPN ---
Subjective Subjective Date of Service: 12/26/22 Reason For Visit: F32, F11.20, F14.10, F10.2 Subjective Notes: Conditional Voluntary Healthcare Proxy: No Guardianship: No Medical Problems Affecting Mental Status: No Interim History: Pt has been accepted to [facility] for 12/27/22 2pm admission with medicine to be sent to [facility]. Pt worked with team today to secure a new bank card so he may have funds for transport and living expenses while there. Pt reports he is pleased with the outcome, thanked team for working with him and is grateful to have a chance to make a change in his life to put him on a better path . Pedal edema is decreased bilaterally with TEDS stockings, toes appear to be healing well. Medication Compliance: Yes Side effects from medications: No Attending Groups: Intermittent Review of Systems Acute medical concerns: No Medical Review of Systems: unchanged Mental Status Exam Mental Status Exam Patient Appearance: Appropriate Patient Orientation: Person, Place, Time and Situation Level of Consciousness: Awake and Alert Patient Behavior: Appropriate, Talkative, Cooperative and Good Eye Contact Mood Description: Apprehensive Affect Description: Apprehensive Patient Cognition Impaired: No Ability to Follow Directions: Fair Speech Pattern: Spontaneous Speech Memory Description: Intact Hallucinations: None Delusions: Not Present Thought Process: Goal Oriented Thought Content: positive for Goal Oriented and positive for Suicidal Ideation (denies SI, plan or intent) Depressive Symptoms: Low Self Esteem Judgement: Good Diagnostics Vital Signs (24Hr): Vital Signs - 24 hr 12/25/22 21:15 Blood Pressure 138/64 BMI result Body Mass Index 35.5 Labs 12/22/22 13:43 Imaging Radiology Impressions: ITS Impressions Foot X-Ray 12/15/22 18:30 IMPRESSION: Normal left foot. Foot X-Ray 12/15/22 18:30 IMPRESSION: Cortical irregularity at the tuft of the fifth distal phalanx with surrounding soft tissue thickening. This could be associated with osteomyelitis. Correlation with an MRI could be obtained as clinically indicated. Duplex Scan Lower Extremity Artery 12/15/22 18:50 IMPRESSION: Patent visualized bilateral lower extremity arterial vasculature with normal multiphasic flow throughout. Medications Medications Current Medications Acetaminophen (Acetaminophen 325 Mg Tablet) 650 mg PO Q6H PRN PRN Reason: Headache/Pain Mild Scale (1-3) Last Admin: 12/20/22 08:18 Dose: 650 mg Al Hydroxide/Mg Hydroxide (Magnesium Hydrox/Alum Hydrox 30 Ml Oral.Susp) 30 ml PO Q6H PRN PRN Reason: Heartburn/Nausea Buprenorphine/Naloxone (Buprenorphine/Naloxone 12/3 Mg Film) 1 film SUBLINGUAL BID@0800,1500 [facility] Last Admin: 12/26/22 08:59 Dose: 1 film Clonidine HCl (Clonidine Hcl 0.1 Mg Tablet) 0.1 mg PO TID PRN; Protocol PRN Reason: anxiety/restlessness Gabapentin (Gabapentin 400 Mg Capsule) 800 mg PO TID [facility] Last Admin: 12/26/22 08:59 Dose: 800 mg Hydroxyzine HCl (Hydroxyzine Hcl 25 Mg Tablet) 25 mg PO Q6H PRN PRN Reason: Anxiety Last Admin: 12/25/22 21:21 Dose: 25 mg Lidocaine/Diphenhydr/Alum/Mg/Simeth (Mag&Al/Sim/Diphenhyd/Lidocaine 10 Ml Oral.Susp) 10 ml PO Q4H PRN; Protocol PRN Reason: mouth pain Last Admin: 12/18/22 19:02 Dose: 10 ml Magnesium Hydroxide (Milk Of Magnesia 30 Ml Oral.Susp) 30 ml PO DAILY PRN PRN Reason: Constipation Last Admin: 12/20/22 17:22 Dose: 30 ml Melatonin (Melatonin 3 Mg Tablet) 10 mg PO BEDTIME [facility] Last Admin: 12/25/22 21:20 Dose: 9 mg Methocarbamol (Methocarbamol 500 Mg Tablet) 500 mg PO TID PRN PRN Reason: Muscle Spasm Last Admin: 12/25/22 21:19 Dose: 500 mg Mirtazapine (Mirtazapine 30 Mg Tablet) 30 mg PO BEDTIME [facility] Last Admin: 12/25/22 21:20 Dose: 30 mg Multi-Ingred Cream/Lotion/Oil/Oint (Mineral Oil/Petrolatum,White 106 Gm Tube) 1 appl TOPICAL BID [facility]; Protocol Last Admin: 12/26/22 08:59 Dose: 1 appl Nicotine (Nicotine 21 Mg Patch.Td24) 21 mg TRANSDERMA DAILY [facility] Last Admin: 12/26/22 08:59 Dose: 21 mg Nicotine Polacrilex (Nicotine Polacrilex Lozenge 4 Mg Lozenge) 4 mg BUCCAL Q2H PRN PRN Reason: Nicotine Cravings Last Admin: 12/18/22 19:07 Dose: 4 mg Olanzapine (Olanzapine 5 Mg Tablet) 5 mg PO BEDTIME [facility] Last Admin: 12/25/22 21:19 Dose: 5 mg Prazosin HCl (Prazosin Hcl 1 Mg Capsule) 3 mg PO BEDTIME [facility]; Protocol Last Admin: 12/25/22 21:19 Dose: 3 mg Quetiapine Fumarate (Quetiapine Fumarate 100 Mg Tablet) 100 mg PO BEDTIME [facility] Last Admin: 12/25/22 21:20 Dose: 100 mg Sertraline HCl (Sertraline Hcl 25 Mg Tablet) 25 mg PO DAILY [facility] Last Admin: 12/26/22 08:59 Dose: 25 mg Trazodone HCl (Trazodone Hcl 50 Mg Tablet) 50 mg PO BEDTIME MRX1 PRN PRN Reason: Insomnia Last Admin: 12/24/22 21:08 Dose: 50 mg Valacyclovir HCl (Valacyclovir Hcl 1,000 Mg Tablet) 1,000 mg PO DAILY [facility] Last Admin: 12/26/22 08:59 Dose: 1,000 mg Allergies Allergies Allergy/AdvReac Type Severity Reaction Status Date / Time No Known Allergies Allergy Unverified 02/13/20 18:29 Assessment & Plan Assessment & Plan (1) PTSD (post-traumatic stress disorder): Status: Acute Code(s): F43.10 - Post-traumatic stress disorder, unspecified (2) Recurrent major depression-severe: Status: Acute Code(s): F33.2 - Major depressive disorder, recurrent severe without psychotic features (3) Opioid use disorder: Status: Acute Code(s): F11.90 - Opioid use, unspecified, uncomplicated (4) Cocaine use disorder: Status: Acute Code(s): F14.10 - Cocaine abuse, uncomplicated (5) Cannabis use disorder: Status: Acute Code(s): F12.90 - Cannabis use, unspecified, uncomplicated Plan 12/21/22 Increase Gabapentin to 800 mg tid Sertraline 25 mg a.m TEDS-bilateral- BLE edema 2 gram sodium diet 12/22/22 Diagnostics for edema to r/o CHF,cardiac sx. Hospitalist consult as pt has been seen for dry necrosis of toes Continue current regime Continue CSS application process-pt has limited applications to local programs 12/23/22 Continue current plan Hospitalist consult, elevated LFT panel, pedal edema 12/24: Continue current regimen and plans 12/25: Continue current plans and regimen 12/26/20 Edema resolved with TEDS stockings Pt accepted to [facility] for 12/27/22. Patient educated on: diagnosis, medication risk/benefits, substance abuse, therapeutic strategies and medical condition Informed Consent: understands Reason for continued inpatient stay Substantial Risk for: harm to self, inability to function and rapid decompensation Time Spent With Patient Time: Total time managing care of this patient today ____ minutes.
[2022-12-26 17:18] VITALS: BP 138/67; PULSE 67; RESP 16; TEMP 36.9; O2SAT 98
[2022-12-26] MEDS: Prazosin HCL 1 MG CAPSULE 3 MG PO (21:20)
[2022-12-26] MEDS: hydrOXYzine HCL 25 MG TABLET PO (21:21)
[2022-12-26] MEDS: Melatonin 3 MG TABLET 10 MG PO (21:21)
[2022-12-26] MEDS: methocarbamoL 500 MG TABLET PO (21:21)
[2022-12-26] MEDS: Mirtazapine 30 MG TABLET PO (21:24)
[2022-12-26] MEDS: OLANZapine 5 MG TABLET PO (21:25)
[2022-12-26] MEDS: QUEtiapine Fumarate 100 MG TABLET PO (21:25)
[2022-12-27 08:16] VITALS: BP 127/88; PULSE 71; RESP 16; TEMP 36.1; O2SAT 95
[2022-12-27] MEDS: Buprenorphine/Naloxone 12/3 mg FILM 1 FILM SUBLINGUAL (08:56)
[2022-12-27] MEDS: Sertraline HCL 25 MG TABLET PO (08:56)
[2022-12-27] MEDS: valACYclovir HCL 1,000 MG TABLET 1000 MG PO (08:56)
[2022-12-27] MEDS: Gabapentin 400 MG CAPSULE 800 MG PO (08:56)
[2022-12-27] MEDS: Nicotine 21 MG PATCH.TD24 TRANSDERMA (08:57)
[2022-12-27] MEDS: Naloxone HCl Nasal TAKE HOME 4 MG SPRAY 8 MG NOSTRILALT (10:35)
--- NOTE | 2022-12-27 18:12 | PM.PSYDC ---
DS: Providers Provider Date of Service: 12/27/22 Date of admission: 12/14/22 19:40 Date of discharge: 12/27/22 Primary care physician: Unknown Physician Admitting clinician: Alayna Parry Attending physician on admission: Yuniel Schultz Consults: 12/14/22 20:26 Consult to Hospitalist Routine Comment: Consulting Provider: Hospitalist Reason For Exam: adm physical opiate use s/p bebe rhabdo fentanyl od 12/15/22 15:24 Consult to General Surgery Routine Consulting Provider: [facility] Reason for consultation: gangrene bilateral great toes 12/21/22 13:44 Addiction Medicine Routine Consulting Provider: Addiction Covering Reason for consultation: Recovery coaching Has provider been notified: No 12/22/22 13:45 Consult to Hospitalist Routine Comment: dry necrosis bilateral toes on admit Consulting Provider: Hospitalist Reason For Exam: pedal edema, new onset, pt reports no hx. 12/23/22 18:38 Consult to Hospitalist Routine Comment: Consulting Provider: Hospitalist Reason For Exam: elevated LFT panel, pedal, ankle edema Attending physician on discharge: Yuniel Schultz Discharging clinician: Alayna Parry DS: Diagnosis Discharge Diagnosis (1) PTSD (post-traumatic stress disorder): Status: Acute (2) Recurrent major depression-severe: Status: Acute (3) Opioid use disorder: Status: Acute (4) Cocaine use disorder: Status: Acute (5) Cannabis use disorder: Status: Acute DS: Medications Discharge Medications Home Medications: Previous Rx's Medication Instructions Recorded gabapentin 400 mg capsule 800 mg PO TID #90 caps 12/26/22 hydroxyzine HCl 25 mg tablet 25 mg PO Q6H PRN Anxiety #60 tabs 12/26/22 melatonin 10 mg capsule 10 mg PO BEDTIME PRN sleep #30 caps 12/26/22 nicotine (polacrilex) 4 mg buccal 4 mg buccal Q2H PRN Nicotine 12/26/22 lozenge Cravings #60 ea nicotine 21 mg/24 hr daily 21 mg transdermal DAILY #30 ea 12/26/22 transdermal patch olanzapine 5 mg tablet 5 mg PO BEDTIME #30 tabs 12/26/22 prazosin 1 mg capsule 3 mg PO BEDTIME #90 caps 12/26/22 quetiapine 100 mg tablet 100 mg PO BEDTIME #30 tabs 12/26/22 sertraline 25 mg tablet 25 mg PO DAILY #30 tabs 12/26/22 valacyclovir 1 gram tablet 1,000 mg PO DAILY #30 tabs 12/26/22 buprenorphine 12 mg-naloxone 3 mg 1 film sublingual BID@0800,1500 12/27/22 sublingual film (Suboxone) #60 ea Mental Status Exam Mental Status Exam Patient Appearance: Appropriate Patient Orientation: Person, Place, Time and Situation Level of Consciousness: Awake and Alert Patient Behavior: Appropriate, Talkative, Cooperative and Good Eye Contact Mood Description: Apprehensive Affect Description: Apprehensive Patient Cognition Impaired: No Ability to Follow Directions: Fair Speech Pattern: Spontaneous Speech Memory Description: Intact Hallucinations: None Delusions: Not Present Thought Process: Goal Oriented Thought Content: positive for Goal Oriented and positive for Suicidal Ideation (denies SI, plan or intent) Depressive Symptoms: Low Self Esteem Judgement: Good Data Data Completed and Pending Completed studies during hospitalization [Text1]: 12/22/22 13:43 Sodium 136 Potassium 4.4 D Chloride 104 Carbon Dioxide 21 L Anion Gap 15 BUN 13 Creatinine 0.86 Estim Creat Clear Calc 125.0 Estimated GFR > 60 Random Glucose 161 H Calcium 9.2 Total Bilirubin 0.1 AST 71 H ALT 99 H Alkaline Phosphatase 162 H Total Protein 7.2 Albumin 3.5 12/22/22 14:38 Urine clean catch - Clean Catch Midstream Urine Culture - Final No growth. Imaging Diagnostic Imaging Impressions Foot X-Ray 12/15/22 18:30 IMPRESSION: Normal left foot. Foot X-Ray 12/15/22 18:30 IMPRESSION: Cortical irregularity at the tuft of the fifth distal phalanx with surrounding soft tissue thickening. This could be associated with osteomyelitis. Correlation with an MRI could be obtained as clinically indicated. Duplex Scan Lower Extremity Artery 12/15/22 18:50 IMPRESSION: Patent visualized bilateral lower extremity arterial vasculature with normal multiphasic flow throughout. DS: Summary Hospital Course Hospital Course: Admission to adult psychiatry s/p fentanyl overdose, medical admit with [facility]. History of PTSD, major depression, opiate, cocaine, cannabis use. Pt recovering from BEBE, rhabdomyolysis s/p OD. Identifies relapse as a result of financial and homelessness stress. Medications were reviewed, adjusted. Pt was medically followed. Suboxone was maintained and pt was referred to [facility] Time spent discussing smoking cessation with patient: 3 to 10 minutes Status at Discharge Functional status at discharge: independent ambulation Overall status at discharge: patient is progressing back to baseline Time Spent with Patient Time attestation: Total time managing care of this patient today ____ minutes. Time spent: Greater than 30 minutes Discharge Plan Discharge Anticipated Discharge Date/Time: 12/27/22 13:00 Patient Disposition: Xfer Inpatient Rehab Fac Discharge Diagnosis: PTSD Recurrent Major Depression, Severe Opiate Use Disorder Cocaine Use Disorder Referrals: [facility] (Suboxone) [Other] - 01/04/23 3:15 pm (Follow-up Suboxone Appointment In Person at [facility].) Vanessa Vasquez: [facility] [Other] - 01/02/23 1:00 pm (Initial Intake Appointment with Psychiatric Medication Provider Appointment is in person at [facility] in [place] During intake patient will also need to speak with Clinic staff regarding therapy and CSP resources ) [facility] [Other] - 12/27/22 2:00 pm ([facility] Patient accepted to [facility] for substance abuse treatment.) [facility] [Other] - 1 Week (Referral for CSS placement for substance us treatment Patient may follow-up on referral after discharge ) [facility]Other[facility] - 1 Week (referral to [facility] program Patient may follow-up on referral after discharge ) [facility] [Other] - 1 Week (Walk in if needed) Physician,Unknown J [Primary Care Provider] - 1 Week Discharge Medications: New valacyclovir 1 gram Tablet 1,000 mg PO DAILY Qty: 30 0RF gabapentin 400 mg Capsule 800 mg PO TID Qty: 90 0RF olanzapine 5 mg Tablet 5 mg PO BEDTIME Qty: 30 0RF quetiapine 100 mg Tablet 100 mg PO BEDTIME Qty: 30 0RF nicotine 21 mg/24 hr Patch 24 Hour 21 mg transdermal DAILY Qty: 30 0RF hydroxyzine HCl 25 mg Tablet 25 mg PO Q6H PRN (Reason: Anxiety) Qty: 60 0RF nicotine (polacrilex) 4 mg Lozenge 4 mg buccal Q2H PRN (Reason: Nicotine Cravings) Qty: 60 0RF sertraline 25 mg Tablet 25 mg PO DAILY Qty: 30 0RF melatonin 10 mg capsule 10 mg PO BEDTIME PRN (Reason: sleep) Qty: 30 0RF prazosin 1 mg capsule 3 mg PO BEDTIME Qty: 90 0RF buprenorphine-naloxone [Suboxone] 12-3 mg Film 1 film sublingual BID@0800,1500 Qty: 60 0RF Discharge Orders: Discharge Order (Routine); Ordered 12/27/22 Ordered By: Alayna Parry Diet: Advance to usual diet Activity on Discharge: As tolerated Stand Alone Forms: Patient Portal Discharge page, Community Support Care Plan Goals: Mood and Behavioral Stabilization Work on Sobriety Health Concerns: Mood and Behavioral Stabilization Work on Sobriety Plan of Treatment: Attend scheduled appointments Make an appointment to follow up with your primary care physician to check on the healing of your toes, the edema in your feet and to re-evaluate your lab work Attend [facility] and follow their plan of care Assessment: Pt interviewd prior to discharge and found to be fully oriented and without SI/HI. Pt has insight and demonstrates good judgment in terms of wanting to pursue treatment Pt is not in imminent risk of harm to self or others and has a safety plan that includes presenting to the closest ER or calling 911 if feeling unsafe Pt has been observed closely by nursing and unit staff throughout admission. Pt has not engaged in any behaviors that suggest dangerousness to self or others and has demonstrated appropriate behaviors and impulse control. Discharge Date/Time: 12/27/22 14:06
== END 2022-12-27 14:06 | DRG 751 ==
PROVIDERS: Physician Assistant; Psychiatry & Neurology Psychiatry; Admitting Provider Psychiatry & Neurology Psychiatry; Visit Provider Clinical Nurse Specialist Psychiatric/Mental Health, Adult
DX: F33.2 Major depressive disorder, recurrent severe without psychotic features (principal); I96 Gangrene, not elsewhere classified; R45.851 Suicidal ideations; D64.9 Anemia, unspecified; F43.10 Post-traumatic stress disorder, unspecified; F14.10 Cocaine abuse, uncomplicated; F12.10 Cannabis abuse, uncomplicated; F11.20 Opioid dependence, uncomplicated; F17.210 Nicotine dependence, cigarettes, uncomplicated; Z86.19 Personal history of other infectious and parasitic diseases; Z91.51 Personal history of suicidal behavior; Z59.02 Unsheltered homelessness; Z71.6 Tobacco abuse counseling; Z79.899 Other long term (current) drug therapy
CPT/HCPCS: 36415; 73620; 80053; 80061; 82607; 82746; 83540; 84100; 84443; 85652; 86140; 87086; 93005; 93925

== ENCOUNTER 2022-12-14 19:40 | Outpatient (BNV) | payer OTHER, SELFPAY | END 2022-12-22 14:07 | PROVIDERS: Admitting Provider Psychiatry & Neurology Psychiatry; Visit Provider Internal Medicine Cardiovascular Disease | DX: R60.9 Edema, unspecified (principal) | CPT/HCPCS: 93010 ==

== ENCOUNTER → 2022-12-14 19:40 | Outpatient (BNV) | payer OTHER, SELFPAY | PROVIDERS: Admitting Provider Psychiatry & Neurology Psychiatry; Visit Provider Physician Assistant | DX: I96 Gangrene, not elsewhere classified (principal); M79.674 Pain in right toe(s); M79.675 Pain in left toe(s) | CPT/HCPCS: 99222 ==

== ENCOUNTER → 2022-12-14 19:40 | Outpatient (BNV) | payer OTHER, SELFPAY | PROVIDERS: Admitting Provider Psychiatry & Neurology Psychiatry; Visit Provider Clinical Nurse Specialist Psychiatric/Mental Health, Adult | DX: F43.10 Post-traumatic stress disorder, unspecified (principal); F33.2 Major depressive disorder, recurrent severe without psychotic features; F11.90 Opioid use, unspecified, uncomplicated; F14.10 Cocaine abuse, uncomplicated; F12.90 Cannabis use, unspecified, uncomplicated | CPT/HCPCS: 99231; 99232 ==

== ENCOUNTER → 2022-12-14 19:40 | Outpatient (BNV) | payer OTHER, SELFPAY | PROVIDERS: Admitting Provider Psychiatry & Neurology Psychiatry; Visit Provider Surgery | DX: L81.9 Disorder of pigmentation, unspecified (principal) | CPT/HCPCS: 99232 ==